=== PATIENT | male | born 1955 | race Caucasian/White ===

== ENCOUNTER 2017-08-30 18:23 | Inpatient (IN) | payer BC ==
[2017-08-30] MEDS ORDERED: Nitroglycerin 50 MG/250 ML BOT 250 ML ONE (19:03)
[2017-08-30] MEDS ORDERED: Morphine 2 mg/2ml in 0.9% NaCl PF SYRINGE ONE ×2 (19:32→21:53)
[2017-08-30] MEDS ORDERED: Morphine 4 MG/ML VIAL SLOW IVP PRN ×2 (19:49→23:00)
[2017-08-30] MEDS ORDERED: Atorvastatin Calcium 40 MG TAB PO SCH (21:00)
[2017-08-30 21:04] LABS: Troponin I 13.521 ng/mL (< 0.028)
--- NOTE | 2017-08-30 22:26 | PDOC.EVN ---
Event Note - Event Note Event Note: [id number] H&P Dictated 1. NSTEMI 2. Angina 3. htn 4. h/p hpl plan: see orders
[2017-08-30] MEDS ORDERED: Nitroglycerin 50 MG/250 ML BOT 250 ML IVPB SCH ×2 (23:30→23:45)
[2017-08-30 23:32] LABS: Troponin I 20.239 ng/mL (< 0.028)
[2017-08-30 23:33] VITALS: BMI 33.1
[2017-08-30] MEDS ORDERED: Dextrose 50% Abboject 50 ML SYRINGE SLOW IVP PRN (23:40)
[2017-08-30] MEDS ORDERED: HumaLOG 300 UNITS/3 ML VIAL SC PRN ×2 (23:40)
[2017-08-30] MEDS ORDERED: Dextrose 5% in Water 1,000 ML IV PRN (23:40)
--- NOTE | 2017-08-31 04:39 | CON ---
DATE OF CONSULTATION: 08/30/2017 HISTORY OF PRESENT ILLNESS: The patient is a 62-year-old gentleman who presented with acute onset of chest and back discomfort. The patient has a previous history of a CVA . He was in his usual state of health when this morning, he developed midsternal chest discomfort. he became diaphoretic and short of breath. Patient did not come to the emergency room until late in the afternoon. The patient at that time continued to have chest discomfort. He was then transferred to [place] for further evaluation. Patient states he continues to have some pain mostly in his left shoulder. PAST MEDICAL HISTORY: 1. Cerebrovascular accident. 2. Diabetes mellitus. 3. Hypertension. PAST SURGICAL HISTORY: Hand surgery. MEDICATIONS: Norvasc 5 daily, losartan 100 daily, Lipitor 40 at bedtime, aspirin 81 daily, metformin and Januvia. SOCIAL HISTORY: Nonsmoker. FAMILY HISTORY: No strong family history of heart disease. PHYSICAL EXAMINATION: GENERAL: This is an obese gentleman in mild distress. VITAL SIGNS: Blood pressure 153/80, heart rate was 50 on IV nitro. NECK: Full. LUNGS: Clear. HEART: Regular rate and rhythm, normal S1, S2, no murmurs. ABDOMEN: Distended. EXTREMITIES: Showed trace edema. SKIN: Warm and dry. NEUROLOGIC: Nonfocal. VASCULAR: Radial pulses are 2+. LABORATORY DATA: Sodium is 139, potassium 3.9, chloride 104, bicarbonate 23, BUN 19, creatinine is 0.83, glucose is 234. CPK-MB was 21.5 with a troponin of 7.7. EKG revealed normal sinus rhythm, nonspecific T-wave abnormality and Q- waves suggestive of possible previous inferior infarction. IMPRESSION: 1. Non-Q-wave myocardial infarction. 2. Diabetes mellitus. 3. Hypertension. 4. History of cerebrovascular accident. This gentleman presents with a non Q-wave myocardial infarction. He has received aspirin and Lovenox. He was started on IV nitroglycerin. The patient will be monitored in the ICU. I have recommended the patient proceed with a cardiac catheterization during this hospitalization. I explained the risks involved with cardiac catheterization including [place], bleeding, stroke, cardiac arrhythmia, and cardiac . The patient understands these risk as well as the risks involved in stent placement. PLAN: 1. Admit to the ICU. 2. IV nitroglycerin 3. IV Morphine. 4. Continue aspirin. 5. Continue Lovenox. 6. Continue Lipitor. 7. Proceed with cardiac catheterization during this hospitalization. CRITICAL CARE TIME: 60 minutes. DEBBI
--- NOTE | 2017-08-31 04:58 | HP ---
DATE OF ADMISSION: 08/30/2017 CHIEF COMPLAINT: Chest pain. HISTORY OF PRESENT ILLNESS: Patient is a 62 years old male with the past medical history of hyperten barrett, hyperlipidemia, diabetes mellitus type 2, coronary artery disease, who woke up this morning, he started having chest pain. Chest pain is substernal, pressure kind of pain radiating towards the le ft side, pain abuts both the sides, pain persisted, so that is why he came to the ER. Pain is interm ittent associated with some dyspnea also and some nausea, denies any smoking, denies any dizziness, d enies any lightheadedness. Complains of generalized body aches also. Patient currently denies any c hest pain at this time, patient is more achy kind, moderate in intensity. PAST MEDICAL HISTORY: As per HPI. PAST SURGICAL HISTORY: Hand surgery, bilateral eye surgery. SOCIAL HISTORY: Denies spontaneous alcohol, denies any drugs. FAMILY HISTORY: Positive for heart problems. MEDICATIONS: Reviewed. REVIEW OF SYSTEMS: Constitutional: Denies any fever, denies any chills. Eyes: Denies any vision p roblems. Ears: Denies any hearing loss. Neck: Denies any neck pain. Cardiovascular system: Posi tive for chest pain. Respiratory system: Denies any cough, denies sputum production. Gastrointesti nal: Denies any nausea. Denies any vomiting. Musculoskeletal: Denies any joint deformities. Inte gument: Denies any rash. All other review of systems are reviewed and are negative. PHYSICAL EXAMINATION RESPIRATORY: CONSTITUTIONAL/VITAL SIGNS: At the time of H and P performed, blood pressure 108/56, heart rate is 9 4, pulse ox 93% on room air. GENERAL: The patient appears tired. HEENT: Anterior nares patent. Nose normal. Ears normal. Teeth intact. Tongue is moist. NECK: Supple, no JVD. CARDIOVASCULAR SYSTEM: S1, S2 present. Regular rate and rhythm. No murmurs, no rubs, no gallops. RESPIRATORY SYSTEM: No wheezing, no rhonchi. Breath sounds bilaterally. GASTROINTESTINAL: Abdomen soft, nontender, no guarding, no organomegaly, no masses felt. MUSCULOSKELETAL: No edema. INTEGUMENTARY: No rashes seen. PSYCHIATRIC: Mood is appropriate at this time. LABORATORY DATA: At the time of H and P performed, sodium 139, potassium 3.9, chloride 104, CO2 23, BUN of 19, creatinine 0.83. Troponin 13.52, CK-MB 21, CK of 471. White count 9.3, hemoglobin 14.5, platelet count 257. EKG: Positive for Q-waves in lead II, III, AVF. ASSESSMENT AND PLAN: The patient is a 62 years old male: 1. Def-LP-wrziyhh elevation myocardial infarction. The patient is already seen by Cardiology and chris bonds is scheduled for catheterization in the morning. The patient received a dose of Lovenox in the outside hospital. We will continue the nitro drip. We will monitor the patient closely. Continue aspirin 325 mg p.o. daily. 2. Angina. Continue nitro drip. Monitor blood pressure closely. 3. History of hypertension. Blood pressure is stable. We will hold pressure medications. 4. Diabetes mellitus type 2. Monitor blood sugars. We will do insulin sliding scale. 5. Hyperlipidemia. Continue statin. The case was discussed in detail with the patient. The patient is a FULL CODE.
[2017-08-31 05:11] LABS: Troponin I 26.911 ng/mL (< 0.028)
[2017-08-31] MEDS ORDERED: Heparin 1000 UNIT/NS 500ML(OR) 1,000 ML ONE (08:25)
[2017-08-31] MEDS ORDERED: FLU VACC QS2017-18 36 mo. & older 0.5 ML SYRINGE IM ONE (09:00)
[2017-08-31] MEDS ORDERED: Aspirin 325 mg Enteric Coated Tablet PO SCH (09:00)
[2017-08-31] MEDS ORDERED: Midazolam HCl 2 mg/2 ml Vial ONE (09:03)
[2017-08-31] MEDS ORDERED: Acetaminophen/Codeine 30-300mg Tablet PO PRN ×2 (09:20)
[2017-08-31] MEDS ORDERED: traMADol HCl 50 MG TAB PO PRN (09:20)
[2017-08-31] MEDS ORDERED: Nitroglycerin 0.4 MG TAB (25 Tab Bottle) SL PRN (09:20)
[2017-08-31] MEDS ORDERED: Sodium Chloride 0.9% 200 ML IV SCH (09:30)
[2017-08-31] MEDS ORDERED: Communication Order-Pharmacy FS SCH (09:51)
[2017-08-31 10:29] LABS: #Eosinphils 0.1 thou/uL (0.0-0.7); #Lymphocytes 2.2 thou/uL (1.20-3.40); #Monocytes 0.7 thou/uL (0.11-0.59); #Neutrophils 7.3 thou/uL (1.40-6.50); %Basophils 0.1 % (0.0-1.0); %Eosinophils 1.2 % (0.0-10.0); %Lymphocytes 21.7 % (21.0-51.0); %Monocytes 6.5 % (0.0-10.0); Hematocrit 40.9 % (42.0-52.0); Mean Platelet Volume 6.8 fL (7.4-10.4); Red Blood Cell (RBC) Count 4.49 mill/uL (4.70-6.10); White Blood Cell (WBC) Count 10.3 thou/uL (4.8-10.8)
[2017-08-31 10:34] LABS: PTT 29.8 SEC (22.9-36.1); Prothrombin Time 12.8 SEC (12.0-14.7)
[2017-08-31 10:40] LABS: Hemoglobin A1c 9.4 % (4.0-6.0)
[2017-08-31] MEDS ORDERED: Heparin 10,000 UNITS/1 ML VIAL 30,000 UNITS in Sodium Chloride 0.9% 1,000 ML FS SCH (11:00)
[2017-08-31] MEDS ORDERED: Lidocaine 1% (PF) 30 ML VIAL ONE (11:53)
[2017-08-31] MEDS ORDERED: CEFAZOLIN/Water 2 GM/20 ML SYRINGE ONE (12:40)
[2017-08-31] MEDS ORDERED: Vecuronium 10 MG VIAL ONE ×2 (12:46→15:53)
[2017-08-31] MEDS ORDERED: Midazolam HCl 5 mg/5 ml Vial ONE (12:46)
[2017-08-31] MEDS ORDERED: Fentanyl 250 MCG/5 ML VIAL ONE (12:46)
--- NOTE | 2017-08-31 13:42 | CON ---
DATE OF CONSULTATION: 08/31/2017 HISTORY OF PRESENT ILLNESS: Mr. Guzman is a 62-year-old gentleman who was admitted yesterday evening with ST elevation myocardial infarction. Peak troponin was 27. He received aspirin and nitroglyceri n, and his pain was relieved. He had intermittent chest pain during the night. He underwent cardiac catheterization today and had intermittent chest pain during the procedure. Currently, he is chest pain free, resting in the intensive care unit. Cardiac catheterization revealed an ejection fraction of approximately 40%. He has diffusely disease d coronary arteries. He has proximal stenosis in the LAD, diagonal, ramus, circumflex, and right cor onary systems. Potential bypassable targets include an LAD, diagonal, ramus posterolateral and poste rior descending artery. PAST MEDICAL HISTORY: 1. Uncontrolled diabetes mellitus. 2. Hypertension. 3. Hyperlipidemia. 4. Coronary artery disease. PAST SURGICAL HISTORY: 1. Hand surgery. 2. Bilateral eye surgeries. SOCIAL HISTORY: He does not use tobacco or alcohol. FAMILY HISTORY: Positive for coronary artery disease in his father. HOME MEDICATIONS: 1. Protonix 20 mg daily. 2. Aspirin 81 mg daily. 3. Januvia 100 mg daily. 4. Metformin 1000 mg b.i.d. 5. Losartan 100 mg daily. 6. Farxiga 10 mg daily. 7. Atorvastatin 40 mg daily. 8. Amlodipine 5 mg daily. REVIEW OF SYSTEMS: Ten point review of systems performed and is negative except as above. PHYSICAL EXAMINATION: GENERAL: This is a well-developed, well-nourished moderately obese gentleman, resting comfortably in bed. VITAL SIGNS: Height 5 feet 6 inches, weight 205 pounds, BSA is 2.08. His temperature is 98.8, pulse is 58 and regular, blood pressure is 121/67. NECK: Supple. There is no carotid bruit. CHEST: Clear bilaterally. HEART: Rhythm is regular without murmur. ABDOMEN: Soft and nontender without mass. EXTREMITIES: No edema. VASCULAR: Palpable carotid, radial, femoral, and dorsalis pedis pulses bilaterally. VENOUS: There are no venous varicosities or venous stasis changes. LABORATORY DATA: Peak troponin was 27. Hemoglobin was 14.5, platelet count 257,000. Potassium is 3 .9, creatinine 0.83. ASSESSMENT AND PLAN: This is a 62-year-old gentleman who has had intermittent medical care. He does not check his blood sugars at home and has not had an A1c checked since 2016, when it was 7.6. He p resented with STEMI, has undergone catheterization and has severe diffuse coronary disease. He has h ad intermittent chest pain overnight. I have discussed urgent coronary artery bypass grafting with quinten huerta and he is agreeable. We will plan for surgery as soon as personnel and room is available.
[2017-08-31] MEDS ORDERED: Insulin Regular 300 UNITS/3 ML VIAL ONE (14:59)
--- NOTE | 2017-08-31 15:18 | PDOC.PN ---
- Subjective Encounter Start Date: 08/31/17 Encounter Start Time: 10:00 Pt seen for followup re: NSTEMI. Denies chest pain, shortness of breath. - Objective Vital Signs & Weight: Vital Signs (12 hours) Temp Pulse Resp Pulse Ox 08/31/17 07:21 98.4 F 56 L 23 H 92 L 08/31/17 04:00 98.3 F Weight Weight 205 lb 7.533 oz Most Recent Monitor Data Heart Rate from ECG 63 NIBP 162/92 NIBP BP-Mean 101 Respiration from ECG 16 SpO2 95 I&O: 08/30/17 08/31/17 09/01/17 06:59 06:59 06:59 Intake Total 28 Output Total 350 375 Balance -322 -375 Result Diagrams: 08/31/17 10:06 Additional Labs: Accuchecks 08/31/17 08/31/17 08/31/17 12:00 04:10 00:49 POC Glucose 160 H 179 H 189 H Phys Exam - Physical Examination Obesity HEENT: PERRLA, moist MMs, sclera anicteric, oral pharynx no lesions Neck: no nodes, no JVD, supple, full ROM Respiratory: no wheezing, no rales, no rhonchi, clear to auscultation bilateral Cardiovascular: RRR, no rub Gastrointestinal: soft, non-tender, no distention, positive bowel sounds Musculoskeletal: pulses present Neurological: moves all 4 limbs Lymphatic: no nodes Psychiatric: normal affect, A&O x 3 Skin: no rash, normal turgor, cap refill <2 seconds Dx/Plan (1) NSTEMI (non-ST elevated myocardial infarction) Code(s): I21.4 - NON-ST ELEVATION (NSTEMI) MYOCARDIAL INFARCTION Status: Acute (2) Multi-vessel coronary artery stenosis Code(s): I25.10 - ATHSCL HEART DISEASE OF [place] CORONARY ARTERY W/O ANG PCTRS Status: Acute (3) DM2 (diabetes mellitus, type 2) Status: Chronic (4) HTN (hypertension) Code(s): I10 - ESSENTIAL (PRIMARY) HYPERTENSION Status: Chronic (5) Dyslipidemia Code(s): E78.5 - HYPERLIPIDEMIA, UNSPECIFIED Status: Chronic - Plan * . Pt awaiting CV surgery input re: multi vessel CAD. Continue accuchecks, insulin sliding scale. Monitor vital signs, titrate antihypertensives as needed. Continue statin Review of Systems - Review of Systems Constitutional: negative: Fever, Chills, Sweats, Weakness, Malaise Respiratory: negative: Cough, Dry, Shortness of Breath, Hemoptysis, SOB with Excertion, Pleuritic Pain, Sputum, Wheezing Cardiovascular: negative: Chest Pain, Palpitations, Orthopnea, Paroxysmal Noc. Dyspnea, Edema, Light Headedness Gastrointestinal: negative: Nausea, Vomiting, Abdominal Pain, Diarrhea, Constipation, Melena, Hematochezia Genitourinary: negative: Dysuria, Frequency, Incontinence, Hematuria, Retention - Medications/Allergies Allergies/Adverse Reactions: Allergies Allergy/AdvReac Type Severity Reaction Status Date / Time No Known Allergies Allergy Verified 08/31/17 07:24 Medications: Current Medications Acetaminophen/Codeine Phosphate (Tylenol #3) 1 tab PO Q4H PRN PRN Reason: Mild Pain (1-3) Acetaminophen/Codeine Phosphate (Tylenol #3) 2 tab PO Q4H PRN PRN Reason: Moderate Pain (4-6) Aspirin (Ecotrin) 325 mg PO DAILY [facility] Last Admin: 08/31/17 12:53 Dose: Not Given Atorvastatin Calcium (Lipitor) 40 mg PO HS [facility] Last Admin: 08/30/17 23:29 Dose: 40 mg Dextrose/Water (Dextrose 50%) 25 gm SLOW IVP PRN PRN PRN Reason: Hypoglycemia Glucagon (Glucagon) 1 mg IM PRN PRN PRN Reason: Hypoglycemia Nitroglycerin/Dextrose (Nitroglycerin 50 Mg/250 Ml Bot) 250 mls @ 0 mls/hr IVPB INF ERUM; Titrate PRN Reason: Protocol Dextrose/Water (D5w) 1,000 mls @ 0 mls/hr IV .Q0M PRN; As Directed PRN Reason: Hypoglycemia Sodium Chloride (Normal Saline 0.9%) 200 mls @ 0 mls/hr IV NOW ERUM PRN Reason: As Directed Stop: 08/31/17 23:59 Last Admin: 08/31/17 12:54 Dose: Not Given Heparin Sodium (Porcine) 30, (000 units/ Sodium Chloride) 1,003 mls @ 0 mls/hr FS WILLCALL ERUM PRN Reason: As Directed Stop: 08/31/17 23:59 Insulin Human Lispro (Humalog) 0 units SC .MODERATE SLIDING SC PRN PRN Reason: Moderate Correctional Scale Insulin Human Lispro (Humalog) 0 units SC .BEDTIME SLIDING SC PRN PRN Reason: Bedtime Correctional Scale Miscellaneous Information (Communication Order-Pharmacy) 1 each FS ONE [facility] Stop: 09/01/17 23:59 Morphine Sulfate (Morphine) 2 mg SLOW IVP Q1H PRN PRN Reason: Chest Pain/PAIN Nitroglycerin (Nitrostat) 0.4 mg SL Q5MIN PRN PRN Reason: Chest Pain Sodium Chloride (Flush - Normal Saline) 10 ml IVF Q12HR [facility] Last Admin: 08/31/17 10:00 Dose: 10 ml Sodium Chloride (Flush - Normal Saline) 10 ml IVF PRN PRN PRN Reason: Saline Flush Sodium Chloride (Flush - Normal Saline) 10 ml IVF PRN PRN PRN Reason: Saline Flush Tramadol HCl (Ultram) 50 mg PO Q6H PRN PRN Reason: Moderate Pain (4-6)
[2017-08-31] MEDS ORDERED: Albumin 5% 0 ML ONE (15:32)
[2017-08-31] MEDS ORDERED: Heparin 30,000 units/30 ml VIAL ONE (15:53)
[2017-08-31] MEDS ORDERED: Propofol 200 MG/20 ML VIAL ONE (15:53)
[2017-08-31] MEDS ORDERED: Protamine Sulfate 250 MG/25 ML VIAL ONE (15:53)
[2017-08-31] MEDS ORDERED: Lidocaine 1% PF 5 ML VIAL ONE (15:53)
[2017-08-31] MEDS ORDERED: PHENYLEPHRINE-NS 100 MCG/ML 10 ML SYRINGE ONE (15:53)
[2017-08-31] MEDS ORDERED: Aminocaproic Acid 5 GM/20 ML VIAL ONE (15:53)
[2017-08-31] MEDS ORDERED: Iopamidol 370 76% 100 ML VIAL ONE (17:10)
[2017-08-31] MEDS ORDERED: Bisacodyl 10 MG SUPP PR PRN (18:08)
[2017-08-31] MEDS ORDERED: Post-Op Insulin Drip Protocol IVPB ONE (18:08)
[2017-08-31] MEDS ORDERED: Fentanyl 100 MCG/2 ML VIAL SLOW IVP PRN (18:08)
[2017-08-31] MEDS ORDERED: DOPamine 400 MG/D5W 250 ML 250 ML IVPB PRN (18:08)
[2017-08-31] MEDS ORDERED: Norepinephrine 8 MG/0.9% NS 250 ML IVPB PRN (18:08)
[2017-08-31] MEDS ORDERED: Hetastarch 6% 500 ML 500 ML IVPB PRN (18:08)
[2017-08-31] MEDS ORDERED: D5 1/2 NS w/20 mEq KCL 1,000 ML IV SCH (18:08)
[2017-08-31] MEDS ORDERED: Magnesium 2 GM/NS 0.9% 100 ML 2 GM in Premix Bag 1 BAG IVPB SCH (18:08)
[2017-08-31] MEDS ORDERED: Acetaminophen 325 MG TAB PO PRN (18:08)
[2017-08-31] MEDS ORDERED: Mag-Al 1200 mg/1200 mg/30 ML UDCUP PO PRN (18:08)
[2017-08-31] MEDS ORDERED: Nitroglycerin 50 MG/250 ML BOT 250 ML IVPB PRN (18:08)
[2017-08-31] MEDS ORDERED: hydrALAZINE 20 MG/ML VIAL SLOW IVP PRN (18:08)
[2017-08-31] MEDS ORDERED: Ondansetron HCl/PF 4 MG/2 ML Vial IVP PRN (18:08)
[2017-08-31] MEDS ORDERED: Promethazine HCl 25 MG/ML VIAL IM PRN (18:08)
[2017-08-31] MEDS ORDERED: Guaifenesin DM 100-10/5 ML UDCUP PO PRN (18:08)
[2017-08-31] MEDS ORDERED: Bisacodyl 5 MG TAB PO PRN (18:08)
[2017-08-31] MEDS ORDERED: Dextrose 50% Abboject 50 ML SYRINGE SLOW IVP PRN (18:21)
[2017-08-31] MEDS ORDERED: Dextrose 5% in Water 1,000 ML IV PRN (18:21)
[2017-08-31] MEDS ORDERED: Morphine 4 MG/ML VIAL ONE (18:22)
[2017-08-31] MEDS: Fentanyl 100 MCG/2 ML VIAL SLOW IVP PRN ×2 (18:36→21:10)
[2017-08-31] MEDS: Ketorolac Tromethamine 30 MG/ML VIAL IVP SCH ×2 (18:45→23:40)
[2017-08-31] MEDS ORDERED: Morphine 4 MG/ML VIAL SLOW IVP PRN (18:45)
[2017-08-31 18:51] LABS: PTT 32.3 SEC (22.9-36.1); Prothrombin Time 15.5 SEC (12.0-14.7)
[2017-08-31] MEDS ORDERED: Magnesium 2 GM/NS 0.9% 50 ML 2 GM in Premix Bag 1 BAG IVPB SCH (19:00)
[2017-08-31 19:01] LABS: Anion Gap 16 mmol/L (10-20); BUN (Urea Nitrogen) 16 mg/dL (8.4-25.7); Calc. Creatinine Clearance 126 mL/min (70-130); Calcium 8.6 mg/dL (7.8-10.44); Carbon Dioxide 24 mmol/L (22-29); Chloride 107 mmol/L (98-107); Estimated GFR-MDRD Greater than 90
--- NOTE | 2017-08-31 19:04 | RAD ---
EXAM: ONE VIEW CHEST 08/31/17 COMPARISON: 08/30/17 HISTORY: Status post open heart surgery. FINDINGS: Sternotomy wires are demonstrated. Right sided central venous catheter is identified. There appears t o be a left sided chest tube and mediastinal drainage catheter. Minimal atelectasis in the left lung base. No significant pleural fluid. No pneumothorax. IMPRESSION: Findings compatible with recent open heart surgery. POS: JOB
[2017-08-31 19:08] LABS: Band 7 % (5-11); Mean Platelet Volume 6.7 fL (7.4-10.4); Neutrophil 73 % (42-75); Red Blood Cell (RBC) Count 3.08 mill/uL (4.70-6.10); White Blood Cell (WBC) Count 21.9 thou/uL (4.8-10.8)
[2017-08-31] MEDS: Potassium Chloride 20 MEQ/100 ML PREMIX BAG IVPB PRN (19:22)
--- NOTE | 2017-08-31 19:24 | PRG ---
DATE OF SERVICE: 08/31/2017 SUBJECTIVE: Mr. Guzman is a very pleasant 62-year-old male. I reviewed him this morning prior to vinayak plasencia. He presented with an hour of chest pain yesterday. It radiated to his left arm and his left a rm is very heavy. He called a friend of his, who has had heart surgery. He said both his arms got numb, so Mr. Thomas huber did not think it was his heart, but since it was not going away, he decided to come in. He sti ll has some achy discomfort. He has undergone cardiac catheterization and felt to need bypass surgery. PAST MEDICAL HISTORY: Remarkable for: 1. Liver disorder. 2. Hypertension. 3. Diabetes. 4. Hand surgery. 5. Eye surgery. SOCIAL HISTORY: He is a nonsmoker, nondrinker. FAMILY HISTORY: Positive for heart disease, negative for lung disease at an early age. REVIEW OF SYSTEMS: Otherwise, negative 10 points. Medications have been reviewed. PHYSICAL EXAMINATION: GENERAL: He is a very pleasant gentleman in no distress. VITAL SIGNS: He is 132/57, heart rate was 62, respiratory rate was in the teens, oximetry is 93. HEENT: His pupils are equal, sclerae are anicteric. NECK: Supple. LUNGS: Clear. HEART: Regular rhythm. S1 and S2 are normal. ABDOMEN: Soft. EXTREMITIES: Without asymmetry. LABORATORY DATA: White count 10.3, hemoglobin 13.9, platelets 249. Sodium 139, potassium 3.9, chlor fuad 104, bicarb 23, BUN 19, creatinine 0.8. Troponin got up to 26. IMPRESSION: 1. Myocardial infarction. 2. Coronary artery disease, scheduled for bypass grafting today. I will be happy to follow with the other physicians caring for him.
[2017-08-31] MEDS ORDERED: Famotidine/PF 20 mg/2ml Vial SLOW IVP SCH (21:00)
[2017-08-31] MEDS: CEFAZOLIN/Water 2 GM/20 ML SYRINGE SLOW IVP SCH (21:11)
--- NOTE | 2017-08-31 22:55 | OP ---
DATE OF OPERATION: 08/31/2017 PREOPERATIVE DIAGNOSES: 1. Coronary artery disease/status post-myocardial infarction. 2. Diabetes mellitus. 3. Hypertension. 4. Hyperlipidemia. 5. Obesity. POSTOPERATIVE DIAGNOSES: 1. Coronary artery disease/status post-myocardial infarction. 2. Diabetes mellitus. 3. Hypertension. 4. Hyperlipidemia. 5. Obesity. PROCEDURE: Coronary artery bypass grafting x5 on an urgent basis: 1. Left internal mammary artery to 1.0 mm diffusely diseased, heavily calcified LAD. 2. Reverse saphenous vein to 1.5 mm diffusely diseased, heavily calcified PDA. 3. Reversed saphenous vein to 2.0 mm posterolateral branch. 4. Reversed saphenous vein to 1.0 mm heavily calcified, diffusely diseased diagonal. 5. Reverse saphenous vein to 1.0 mm heavily calcified, diffusely diseased ramus. SURGEON: Dr. Gerardo Desir and Dr. Sal Chavez. ANESTHESIA: General endotracheal - Dr. Eliseo Kruger. PUMP TIME: 73 minutes. CROSS-CLAMP TIME: 39 minutes. LOW CORE TEMPERATURE: 32-degree Celsius. NETTING WEAVER: Pascual Last. DRAINS: 24-Micronesian chest tubes x2. DRIPS: None. TRANSFUSIONS: Two platelet packs and 4 units FFP for diffuse oozing coming off pump. DESCRIPTION OF PROCEDURE: After consent was obtained, the patient was brought to the operating room and placed in the supine position on the operating room table. Appropriate anesthetic monitor was pl aced and general endotracheal anesthesia induced. Chest, abdomen, and legs were prepped and draped i n usual sterile fashion. Greater saphenous vein was harvested from the left leg using an endoscopic and open skip incision technique. Wounds were irrigated and closed in layers. Median sternotomy was performed. Left internal mammary artery was harvested as a pedicle graft. There was a significant amount of ooze from the periosteum and the mammary bed. The patient was systemically heparinized. D istal pedicle was divided and infused with papaverine. Thymic fat and pericardium were divided with electrocautery. Pericardial stay sutures were placed. Aortic and atrial cannulation was performed. After adequate heparinization, retrograde prime was performed, the patient was placed on cardiopulmo nary bypass. Distal targets were marked. Aortic cross-clamp was applied and 1 liter of antegrade co [place] cardioplegia was given. Topical cold solution was used. Reversed saphenous vein was jo stomosed to the PDA in end-to-side fashion with running 7-0 Prolene suture. Anastomosis was tested a nd was hemostatic. Reversed saphenous vein was anastomosed to the posterolateral branch end-to-side fashion with running 7-0 Prolene suture. Anastomosis was tested and was hemostatic. Reversed saphen ous vein was anastomosed to the ramus in end-to-side fashion with running 7-0 Prolene suture. Anasto mosis was tested and was hemostatic. Reversed saphenous vein was anastomosed to the diagonal in end- to-side fashion with running 7-0 Prolene suture. Anastomosis was tested and was hemostatic. Mammary artery was brought through a window in the pericardium and anastomosed to the distal LAD in end-to-s fuad fashion with running 7-0 Prolene suture. On release of the mammary clamp, there was good hooding in the anastomosis and good distal flow. Pedicle was secured with interrupted 6-0 Prolene suture. Cross-clamp was removed and partial occluding clamp placed. Saphenous vein to the ramus and posterol ateral branch were anastomosed to aortic root punch sites. Partial occluding clamp was removed. The grafts were deaired. Saphenous vein to the diagonal was anastomosed to the side wall of the ramus g raft. Saphenous vein to the PDA was anastomosed to the side wall of the posterolateral graft. Anast omoses were inspected for hemostasis, which was good. The patient was warmed and weaned from cardiop ulmonary bypass. After resumption of sinus rhythm, good hemodynamics, and temperature greater than 3 6.5, bypass was discontinued. Transfusions were given. A 24 Micronesian chest tubes were placed in the [facility] x2. Decannulation was performed and pursestring sutures secured. Protamine was administe red. Vancomycin paste was placed on the sternal edges. Platelets and FFP were transfused. After ad equate hemostasis had been obtained, the sternum was closed with #7 wire. Sternum was treated with p latelet-rich plasma and wires twisted. Wounds were irrigated, treated with platelet-poor plasma, and closed in multiple layers. The patient tolerated the procedure well and was transferred to the inte nsive care unit in stable, but critical condition. Needle, sponge, and instrument counts were all re ported as correct at the end of the procedure.
[2017-08-31 23:52] LABS: Hematocrit 28.3 % (42.0-52.0)
[2017-09-01] MEDS: Potassium Chloride 20 MEQ/100 ML PREMIX BAG IVPB PRN (02:15)
[2017-09-01] MEDS: HYDROcodone/Acetaminophen 5/325 mg Tablet PO PRN ×4 (02:23→21:21)
[2017-09-01 04:53] LABS: #Lymphocytes 1.1 thou/uL (1.20-3.40); #Monocytes 0.9 thou/uL (0.11-0.59); #Neutrophils 8.5 thou/uL (1.40-6.50); %Basophils 0.1 % (0.0-1.0); %Eosinophils 0.1 % (0.0-10.0); %Lymphocytes 10.1 % (21.0-51.0); %Monocytes 8.6 % (0.0-10.0); Hematocrit 29.4 % (42.0-52.0); Mean Platelet Volume 6.7 fL (7.4-10.4); Red Blood Cell (RBC) Count 3.22 mill/uL (4.70-6.10); White Blood Cell (WBC) Count 10.5 thou/uL (4.8-10.8)
[2017-09-01 05:11] LABS: Anion Gap 13 mmol/L (10-20); BUN (Urea Nitrogen) 16 mg/dL (8.4-25.7); Calc. Creatinine Clearance 134 mL/min (70-130); Calcium 8.3 mg/dL (7.8-10.44); Carbon Dioxide 25 mmol/L (22-29); Chloride 107 mmol/L (98-107); Estimated GFR-MDRD Greater than 90
[2017-09-01] MEDS: Ketorolac Tromethamine 30 MG/ML VIAL IVP SCH ×4 (05:47→17:52)
[2017-09-01] MEDS: CEFAZOLIN/Water 2 GM/20 ML SYRINGE SLOW IVP SCH ×2 (05:48→14:45)
[2017-09-01] MEDS: Carvedilol 6.25 MG TAB PO SCH ×2 (08:27→16:35)
[2017-09-01] MEDS: metFORMIN 500 MG TAB PO SCH ×2 (08:28→16:35)
[2017-09-01] MEDS: Amlodipine 5 MG TAB PO SCH (08:28)
[2017-09-01] MEDS: Aspirin 325 MG TAB PO SCH (08:28)
[2017-09-01] MEDS: Fish Oil 1,000 MG CAP PO SCH (08:28)
[2017-09-01] MEDS: Alogliptin Benzoate 25 MG TABLET PO SCH (08:28)
[2017-09-01] MEDS: Famotidine 20 MG TAB PO SCH ×2 (08:29→20:07)
[2017-09-01] MEDS ORDERED: Non-Formulary Item 1 EACH (Dapagliflozin Propanediol [Farxiga] 10 MG) PO SCH (09:00)
[2017-09-01] MEDS ORDERED: Magnesium 2 GM/NS 0.9% 100 ML 2 GM in Premix Bag 1 BAG IVPB SCH (09:00)
[2017-09-01] MEDS ORDERED: Losartan Potassium 25 MG TAB PO SCH ×2 (09:00→11:30)
--- NOTE | 2017-09-01 09:56 | RAD ---
AP CHEST: History: Status post open heart surgery. Date: 09-01-17 Comparison: 08-31-17 FINDINGS: AP chest demonstrates sternotomy wires seen. A right subclavian central line is seen. Mild pulmonary vascular congestion is seen. No evidence of effusions, pneumonia, or pneumothorax is seen. IMPRESSION: Pulmonary vascular congestion, otherwise unremarkable AP chest. Mediastinal drain, right subclavian c entral line, and sternotomy wires are stable and unchanged. POS: [facility]
--- NOTE | 2017-09-01 14:42 | PDOC.PN ---
- Subjective Encounter Start Date: 09/01/17 Encounter Start Time: 07:00 Pt seen for followup re: NSTEMI. Reports soreness at surgical site. No cough , fevers or chills. - Objective MAR Reviewed: Yes Vital Signs & Weight: Vital Signs (12 hours) Temp Pulse Resp BP Pulse Ox 09/01/17 14:14 81 18 100 09/01/17 12:00 99.7 F H 09/01/17 08:28 81 131/78 09/01/17 08:27 131/78 09/01/17 08:00 98.9 F 81 20 100 09/01/17 07:10 75 20 97 09/01/17 03:00 98.6 F Weight Weight 208 lb 5.389 oz Most Recent Monitor Data Heart Rate from ECG 82 NIBP 126/81 NIBP BP-Mean 90 Respiration from ECG 22 SpO2 98 I&O: 08/31/17 09/01/17 09/02/17 06:59 06:59 06:59 Intake Total 28 1795 1860 Output Total 350 1525 578 Balance -162 173 3508 Result Diagrams: 09/01/17 04:30 09/01/17 04:30 Additional Labs: Accuchecks 09/01/17 09/01/17 09/01/17 11:12 06:53 04:37 POC Glucose 155 H 127 H 140 H 09/01/17 09/01/17 08/31/17 02:29 01:09 23:46 POC Glucose 108 156 H 156 H 08/31/17 08/31/17 22:05 20:39 POC Glucose 179 H 204 H EKG Reviewed by me: Yes (Tele: NSR) Phys Exam - Physical Examination Constitutional: NAD HEENT: moist MMs Neck: supple Respiratory: clear to auscultation bilateral Cardiovascular: RRR Gastrointestinal: soft, non-tender Musculoskeletal: pulses present Neurological: moves all 4 limbs Psychiatric: normal affect Deviation from normal: surgical sites clean Dx/Plan (1) NSTEMI (non-ST elevated myocardial infarction) Code(s): I21.4 - NON-ST ELEVATION (NSTEMI) MYOCARDIAL INFARCTION Status: Acute (2) S/P CABG x 5 Code(s): Z95.1 - PRESENCE OF AORTOCORONARY BYPASS GRAFT Status: Acute (3) Multi-vessel coronary artery stenosis Code(s): I25.10 - ATHSCL HEART DISEASE OF [place] CORONARY ARTERY W/O ANG PCTRS Status: Acute (4) DM2 (diabetes mellitus, type 2) Status: Chronic (5) HTN (hypertension) Code(s): I10 - ESSENTIAL (PRIMARY) HYPERTENSION Status: Chronic (6) Dyslipidemia Code(s): E78.5 - HYPERLIPIDEMIA, UNSPECIFIED Status: Chronic - Plan plan discussed w/ family, PT/OT, out of bed/ambulate, DVT proph w/SCDs * . s/p CABG x 5. Ambulate patient. Continue accuchecks, insulin. Monitor vital signs and titrate antihypertensives. Review of Systems - Review of Systems Constitutional: negative: Fever, Chills, Sweats, Weakness, Malaise, Other Respiratory: negative: Cough, Dry, Shortness of Breath, Hemoptysis, SOB with Excertion, Pleuritic Pain, Sputum, Wheezing Cardiovascular: negative: Chest Pain, Palpitations, Orthopnea, Paroxysmal Noc. Dyspnea, Edema, Light Headedness - Medications/Allergies Allergies/Adverse Reactions: Allergies Allergy/AdvReac Type Severity Reaction Status Date / Time No Known Allergies Allergy Verified 08/31/17 07:24 Medications: Current Medications Acetaminophen (Tylenol) 650 mg PO Q6H PRN PRN Reason: Headache/Fever Or Mild Pain Hydrocodone Bitart/Acetaminophen ([place] 5/325) 1 tab PO Q4H PRN PRN Reason: Moderate Pain (4-6) Last Admin: 09/01/17 11:08 Dose: 1 tab Hydrocodone Bitart/Acetaminophen ([place] 5/325) 2 tab PO Q4H PRN PRN Reason: Severe Pain (7-10) Last Admin: 09/01/17 02:23 Dose: 2 tab Al Hydroxide/Mg Hydroxide (Maalox) 30 ml PO Q4H PRN PRN Reason: Indigestion Albumin Human (Albumin 5%) 12.5 gm IVPB Q6H PRN PRN Reason: To Maintain SBP> 90 mmHG Stop: 09/01/17 18:09 Albumin Human (Albumin 5%) 25 gm IVPB Q6H PRN PRN Reason: To Maintain SBP > 90 mmHG Stop: 09/01/17 18:09 Albuterol/Ipratropium (Duoneb) 3 ml NEB [id number] Last Admin: 09/01/17 14:14 Dose: 3 ml Albuterol/Ipratropium (Duoneb) 3 ml NEB [id number] PRN PRN Reason: SHORTNESS OF BREATH Alogliptin Benzoate (Alogliptin) 25 mg PO DAILY [facility] Last Admin: 09/01/17 08:28 Dose: 25 mg Amlodipine Besylate (Norvasc) 5 mg PO DAILY [facility] Last Admin: 09/01/17 08:28 Dose: 5 mg Aspirin (Aspirin) 325 mg PO DAILY [facility] Last Admin: 09/01/17 08:28 Dose: 325 mg Bisacodyl (Dulcolax) 10 mg PO Q12H PRN PRN Reason: Constipation Bisacodyl (Dulcolax) 10 mg [place] Q12H PRN PRN Reason: Constipation Carvedilol (Coreg) 6.25 mg PO BID-[facility] Last Admin: 09/01/17 08:27 Dose: 6.25 mg Dextrose/Water (Dextrose 50%) 25 gm SLOW IVP PRN PRN PRN Reason: PER HYPOGLYCEMIC PROTOCOL Famotidine (Pepcid) 20 mg PO BID [facility] Last Admin: 09/01/17 08:29 Dose: 20 mg Fentanyl (Sublimaze) 25 mcg SLOW IVP Q2H PRN PRN Reason: Moderate Pain (4-6) Stop: 09/02/17 17:58 Fentanyl (Sublimaze) 50 mcg SLOW IVP Q2H PRN PRN Reason: Severe Pain (7-10) Stop: 09/02/17 17:58 Last Admin: 08/31/17 21:10 Dose: 50 mcg Fish Oil (Fish Oil) 1,000 mg PO DAILY [facility] Last Admin: 09/01/17 08:28 Dose: 1,000 mg Glucagon (Glucagon) 1 mg SC PRN PRN PRN Reason: PER HYPOGLYCEMIC PROTOCOL Guaifenesin/Dextromethorphan (Robitussin Dm) 15 ml PO Q4H PRN PRN Reason: Cough Hydralazine HCl (Apresoline) 10 mg SLOW IVP Q6H PRN PRN Reason: To Maintain SBP< 140mmHG Hetastarch/Sodium Chloride (Hespan) 500 mls @ 0 mls/hr IVPB PRN PRN; As Directed PRN Reason: To Maintain SBP > 90mmHg Stop: 09/01/17 17:58 Magnesium Sulfate 2 gm/ Device 100 mls @ 100 mls/hr IVPB QAM ERUM Stop: 09/02/17 09:59 Last Admin: 09/01/17 09:58 Dose: 100 mls Nitroglycerin/Dextrose (Nitroglycerin 50 Mg/250 Ml Bot) 250 mls @ 0 mls/hr IVPB PRN PRN; Protocol; Titrate PRN Reason: To Maintain SBP< 140mmHG Dextrose/Water (D5w) 1,000 mls @ 0 mls/hr IV INF PRN; As Directed PRN Reason: PRN HYPOGLYCEMIC PROTOCOL Insulin Detemir (Levemir) 0 units SC ONE PRN PRN Reason: POST-OPEN HEART PROTOCOL Stop: 09/01/17 18:22 Insulin Human Regular (Humulin R) 0 units SC Q4H PRN; Protocol PRN Reason: POST CABG SLIDING SCALE Ketorolac Tromethamine (Toradol) 30 mg IVP Q6HR ERUM Stop: 09/03/17 18:00 Last Admin: 09/01/17 12:55 Dose: 30 mg Losartan Potassium (Cozaar) 25 mg PO DAILY [facility] Metformin HCl (Glucophage) 1,000 mg PO BID-[facility] Last Admin: 09/01/17 08:28 Dose: 1,000 mg Morphine Sulfate (Morphine) 2 mg SLOW IVP Q15M PRN PRN Reason: Pain Non-Formulary Medication (Dapagliflozin Propanediol [Farxiga]) 10 mg PO DAILY [facility] Non-Formulary Medication (Red Yeast Rice [Red Yeast Rice]) 1,200 mg PO BID [facility] Ondansetron HCl (Zofran) 4 mg IVP Q6H PRN PRN Reason: Nausea/Vomiting Last Admin: 08/31/17 18:41 Dose: 4 mg Potassium Chloride (Kcl) 20 meq IVPB PRN PRN PRN Reason: K level </= 4.0 Last Admin: 09/01/17 02:15 Dose: 20 meq Promethazine HCl (Phenergan) 6.25 mg IM Q4H PRN PRN Reason: Nausea/Vomiting Rosuvastatin Calcium (Crestor) 40 mg PO HS [facility] Sodium Chloride (Flush - Normal Saline) 10 ml IVF PRN PRN PRN Reason: Saline Flush
--- NOTE | 2017-09-01 15:50 | EKG ---
Test Reason : STAT Blood Pressure : / mmHG Vent. Rate : 108 BPM Atrial Rate : 108 BPM P-R Int : 214 ms QRS Dur : 100 ms QT Int : 336 ms P-R-T Axes : 056 -30 097 degrees QTc Int : 450 ms Sinus tachycardia with 1st degree A-V block Left axis deviation Marked ST abnormality, possible lateral subendocardial injury vs. ischemia. Abnormal ECG When compared with ECG of 30-AUG-2017 18:46, (Unconfirmed) Vent. rate has increased BY 54 BPM Incomplete right bundle branch block is no longer Present Confirmed by TIFFANY CROCKETT ([id number]) on 09/01/2017 3:49:51 PM Referred By: JENELLE Confirmed By:TIFFANY CROCKETT
--- NOTE | 2017-09-01 15:55 | EKG ---
Test Reason : Blood Pressure : / mmHG Vent. Rate : 077 BPM Atrial Rate : 077 BPM P-R Int : 198 ms QRS Dur : 090 ms QT Int : 372 ms P-R-T Axes : 014 -37 033 degrees QTc Int : 420 ms Normal sinus rhythm Left axis deviation Minimal voltage criteria for LVH, may be normal variant Inferior infarct , age undetermined Abnormal ECG When compared with ECG of 31-AUG-2017 18:28, (Unconfirmed) Inferior infarct is now Present ST no longer depressed in Anterolateral leads Confirmed by TIFFANY CROCKETT ([id number]) on 09/01/2017 3:54:48 PM Referred By: AMBER Confirmed By:TIFFANY CROCKETT
--- NOTE | 2017-09-01 17:49 | PRG ---
DATE OF SERVICE: 09/01/2017 SUBJECTIVE: Mj Guzman was extubated quickly after surgery yesterday. He has done well since that time. He had a brief period of dyspnea, but this has resolved quickly after he awakened from th e surgery. OBJECTIVE: VITAL SIGNS: His heart rate is 80, respiratory rate is in the teens, oximetry is 100%, blood pressur e 133/87. Intake and output is positive 270. Chest tube drainage is 450 mL since surgery. LUNGS: Clear. CARDIOVASCULAR: Regular rhythm. ABDOMEN: Soft. LABORATORY DATA: White count 10.5, hemoglobin 10.0, platelets 248. Sodium 140, potassium 4.5, chlor fuad 107, bicarbonate 25, BUN 16, creatinine 0.7, glucose 139. IMPRESSION AND PLAN: Status post coronary artery bypass grafting, 5-vessel, after myocardial infarct ion after one hour of chest discomfort at home. He appears to be doing well. He still has his chest tubes in place. We will move out of the critical care unit until he is stable after removal of his tubes. This will be CT surgery's discretion. We will follow him as long as he is in the critical ca re unit.
[2017-09-01] MEDS: Insulin Regular 300 UNITS/3 ML VIAL SC PRN ×2 (17:50→21:08)
[2017-09-01] MEDS ORDERED: Atorvastatin Calcium 40 MG TAB PO SCH (21:00)
[2017-09-02] MEDS: Ketorolac Tromethamine 30 MG/ML VIAL IVP SCH ×4 (00:28→17:39)
[2017-09-02 04:18] LABS: #Basophils 0.1 thou/uL (0.0-0.2); #Eosinphils 0.1 thou/uL (0.0-0.7); #Lymphocytes 2.3 thou/uL (1.20-3.40); #Monocytes 0.9 thou/uL (0.11-0.59); #Neutrophils 7.7 thou/uL (1.40-6.50); %Basophils 0.5 % (0.0-1.0); %Eosinophils 1.3 % (0.0-10.0); %Lymphocytes 20.5 % (21.0-51.0); Hematocrit 28.8 % (42.0-52.0); Mean Platelet Volume 6.9 fL (7.4-10.4); Red Blood Cell (RBC) Count 3.11 mill/uL (4.70-6.10)
[2017-09-02] MEDS: HYDROcodone/Acetaminophen 5/325 mg Tablet PO PRN (04:36)
[2017-09-02 04:52] LABS: Anion Gap 8 mmol/L (10-20); BUN (Urea Nitrogen) 20 mg/dL (8.4-25.7); Calc. Creatinine Clearance 142 mL/min (70-130); Calcium 8.2 mg/dL (7.8-10.44); Carbon Dioxide 30 mmol/L (22-29); Chloride 103 mmol/L (98-107); Estimated GFR-MDRD Greater than 90
[2017-09-02] MEDS: Potassium Chloride 20 MEQ/100 ML PREMIX BAG IVPB PRN (06:27)
[2017-09-02] MEDS: Insulin Regular 300 UNITS/3 ML VIAL SC PRN ×2 (06:32→17:42)
[2017-09-02] MEDS ORDERED: Milk Of Magnesia 30 ML UDCUP PO PRN (06:55)
[2017-09-02] MEDS ORDERED: Zolpidem Tartrate 5 MG TAB PO PRN (06:55)
[2017-09-02] MEDS ORDERED: Artificial Tears 18 DROP/0.9 ML EA EYE PRN (06:55)
[2017-09-02] MEDS ORDERED: Bisacodyl 10 MG SUPP PR PRN (06:55)
[2017-09-02] MEDS ORDERED: Fentanyl 100 MCG/2 ML VIAL SLOW IVP PRN ×2 (06:55)
[2017-09-02] MEDS ORDERED: Nitroglycerin 0.4 MG TAB 1 EACH SL PRN (06:55)
[2017-09-02] MEDS ORDERED: diphenhydrAMINE 25 MG CAP PO PRN (06:55)
[2017-09-02] MEDS ORDERED: HYDROcodone/Acetaminophen 5/325 mg Tablet PO PRN ×2 (06:55)
[2017-09-02] MEDS ORDERED: Mineral Oil ENEMA PR PRN (06:55)
[2017-09-02] MEDS ORDERED: Mag-Al 1200 mg/1200 mg/30 ML UDCUP PO PRN (06:55)
[2017-09-02] MEDS ORDERED: Guaifenesin DM 100-10/5 ML UDCUP PO PRN (06:55)
[2017-09-02] MEDS ORDERED: Ondansetron HCl/PF 4 MG/2 ML Vial IVP PRN (06:55)
[2017-09-02] MEDS ORDERED: Bisacodyl 5 MG TAB PO PRN (06:55)
[2017-09-02] MEDS ORDERED: Acetaminophen 325 MG TAB PO PRN (06:55)
[2017-09-02] MEDS ORDERED: Dextrose 50% Abboject 50 ML SYRINGE SLOW IVP PRN (08:08)
[2017-09-02] MEDS ORDERED: Dextrose 5% in Water 1,000 ML IV PRN (08:08)
--- NOTE | 2017-09-02 08:20 | RAD ---
URIGHT PORTABLE CHEST 1 VIEW: HISTORY: A 62-year-old male recent post open heart surgery. COMPARISON: 08/31/17. FINDINGS: Right subclavian catheter in place. Recent postop midline sternotomy. Minimal pleural and parenchym al opacity changes I the left base showing some worsening from the prior study, probably small left p leural effusion and some left lower lobe subsegmental atelectasis. No pneumothorax. IMPRESSION: Postoperative changes in the right perihilar region and left base with some pleural and parenchymal o pacity changes in the left base showing some worsening from the prior study. No pneumothorax. Dio nue short-term followup. POS: [facility]
[2017-09-02] MEDS: Carvedilol 6.25 MG TAB PO SCH ×2 (08:30→17:39)
[2017-09-02] MEDS: Furosemide 40 MG TAB PO SCH (08:31)
[2017-09-02] MEDS: Fish Oil 1,000 MG CAP PO SCH (08:31)
[2017-09-02] MEDS: Aspirin 325 MG TAB PO SCH (08:31)
[2017-09-02] MEDS: Potassium Chloride 10 MEQ TAB PO SCH (08:33)
[2017-09-02] MEDS: metFORMIN 500 MG TAB PO SCH ×2 (08:33→17:39)
[2017-09-02] MEDS: Alogliptin Benzoate 25 MG TABLET PO SCH (08:33)
[2017-09-02] MEDS: Famotidine 20 MG TAB PO SCH ×2 (08:34→20:24)
[2017-09-02] MEDS: Amlodipine 5 MG TAB PO SCH (08:34)
[2017-09-02] MEDS ORDERED: Losartan Potassium 25 MG TAB PO SCH (09:00)
[2017-09-02] MEDS ORDERED: Aspirin 325 mg Enteric Coated Tablet PO SCH (09:00)
[2017-09-02] MEDS ORDERED: Magnesium 2 GM/NS 0.9% 100 ML 2 GM in Premix Bag 1 BAG IVPB SCH (09:15)
[2017-09-02] MEDS: RED YEAST RICE 1200 MG PO SCH ×2 (11:39→11:40)
[2017-09-02] MEDS ORDERED: Clopidogrel Bisulfate 75 MG TAB PO SCH (12:00)
--- NOTE | 2017-09-02 13:08 | PDOC.PN ---
- Subjective Encounter Start Date: 09/02/17 Encounter Start Time: 09:40 Pt seen for followup re: NSTEMI. Feels better. No chest pain, shortness of breath, fevers or chills. - Objective MAR Reviewed: Yes Vital Signs & Weight: Vital Signs (12 hours) Temp Pulse Pulse Pulse Resp BP BP 09/02/17 12:00 98.1 F 82 18 09/02/17 11:54 85 80 124/67 09/02/17 08:35 84 85 138/83 09/02/17 08:34 83 140/72 09/02/17 08:30 140/72 09/02/17 08:00 98 F 80 19 09/02/17 07:27 98 F 79 18 09/02/17 07:00 98 F 09/02/17 04:00 99.2 F BP BP Pulse Ox Pulse Ox Pulse Ox 09/02/17 12:00 111/67 09/02/17 11:54 111/67 90 L 09/02/17 08:35 140/72 100 97 09/02/17 08:34 09/02/17 08:30 09/02/17 08:00 98 09/02/17 07:27 96 09/02/17 07:00 09/02/17 04:00 Weight Weight 202 lb 6.15 oz Most Recent Monitor Data Heart Rate from ECG 85 NIBP 138/83 NIBP BP-Mean 104 Respiration from ECG 15 SpO2 96 I&O: 09/01/17 09/02/17 09/03/17 06:59 06:59 06:59 Intake Total 1795 2400 480 Output Total 1525 1373 0 Balance 270 1027 480 Result Diagrams: 09/02/17 04:00 09/02/17 04:00 Additional Labs: Accuchecks 09/02/17 09/01/17 09/01/17 06:33 21:08 18:39 POC Glucose 158 H 166 H 195 H 09/01/17 16:18 POC Glucose 192 H EKG Reviewed by me: Yes (Tele: NSR) Phys Exam - Physical Examination Constitutional: NAD HEENT: moist MMs Neck: supple Respiratory: clear to auscultation bilateral Cardiovascular: RRR Gastrointestinal: soft Neurological: moves all 4 limbs Psychiatric: normal affect Dx/Plan (1) NSTEMI (non-ST elevated myocardial infarction) Code(s): I21.4 - NON-ST ELEVATION (NSTEMI) MYOCARDIAL INFARCTION Status: Acute (2) S/P CABG x 5 Code(s): Z95.1 - PRESENCE OF AORTOCORONARY BYPASS GRAFT Status: Acute (3) Multi-vessel coronary artery stenosis Code(s): I25.10 - ATHSCL HEART DISEASE OF [place] CORONARY ARTERY W/O ANG PCTRS Status: Acute (4) DM2 (diabetes mellitus, type 2) Status: Chronic (5) HTN (hypertension) Code(s): I10 - ESSENTIAL (PRIMARY) HYPERTENSION Status: Chronic (6) Dyslipidemia Code(s): E78.5 - HYPERLIPIDEMIA, UNSPECIFIED Status: Chronic - Plan PT/OT, out of bed/ambulate, DVT proph w/SCDs * . Continue aspirin, Plavix, statin, beta thomas and ARB. Ambulate pt. Continue accuchecks, insulin sliding scale. Review of Systems - Review of Systems Cardiovascular: negative: Chest Pain, Palpitations, Orthopnea, Paroxysmal Noc. Dyspnea, Edema, Light Headedness Gastrointestinal: negative: Nausea, Vomiting, Abdominal Pain, Diarrhea, Constipation, Melena, Hematochezia - Medications/Allergies Allergies/Adverse Reactions: Allergies Allergy/AdvReac Type Severity Reaction Status Date / Time No Known Allergies Allergy Verified 08/31/17 07:24 Medications: Current Medications Acetaminophen (Tylenol) 650 mg PO Q6H PRN PRN Reason: Headache/Fever or Pain Hydrocodone Bitart/Acetaminophen ([place] 5/325) 1 tab PO Q4H PRN PRN Reason: Moderate Pain (4-6) Hydrocodone Bitart/Acetaminophen ([place] 5/325) 2 tab PO Q4H PRN PRN Reason: Severe Pain (7-10) Al Hydroxide/Mg Hydroxide (Maalox) 30 ml PO Q4H PRN PRN Reason: Indigestion Albuterol/Ipratropium (Duoneb) 3 ml NEB [id number] PRN PRN Reason: Respiratory Distress Albuterol/Ipratropium (Duoneb) 3 ml NEB [id number] [facility] Last Admin: 09/02/17 12:44 Dose: Not Given Alogliptin Benzoate (Alogliptin) 25 mg PO DAILY [facility] Last Admin: 09/02/17 08:33 Dose: 25 mg Amlodipine Besylate (Norvasc) 5 mg PO DAILY [facility] Last Admin: 09/02/17 08:34 Dose: 5 mg Artificial Tears (Tears Naturale) 0 drop EA EYE PRN PRN PRN Reason: Dry Eyes Aspirin (Aspirin) 325 mg PO DAILY [facility] Last Admin: 09/02/17 08:31 Dose: Not Given Aspirin (Ecotrin) 81 mg PO DAILY [facility] Bisacodyl (Dulcolax) 10 mg PO Q12H PRN PRN Reason: Constipation Bisacodyl (Dulcolax) 10 mg [place] Q12H PRN PRN Reason: Constipation Carvedilol (Coreg) 12.5 mg PO BID[facility] Clopidogrel Bisulfate (Plavix) 75 mg PO 1200 [facility] Last Admin: 09/02/17 11:37 Dose: 75 mg Dextrose/Water (Dextrose 50%) 25 gm SLOW IVP PRN PRN PRN Reason: PER HYPOGLYCEMIC PROTOCOL Diphenhydramine HCl (Benadryl) 25 mg PO Q6H PRN PRN Reason: Itching & Insomnia or Tusahr Baldev Famotidine (Pepcid) 20 mg PO BID [facility] Last Admin: 09/02/17 08:34 Dose: 20 mg Fentanyl (Sublimaze) 25 mcg SLOW IVP Q2H PRN PRN Reason: Moderate breakthrough pain Fentanyl (Sublimaze) 50 mcg SLOW IVP Q2H PRN PRN Reason: Severe breakthrough pain Fish Oil (Fish Oil) 1,000 mg PO DAILY [facility] Last Admin: 09/02/17 08:31 Dose: 1,000 mg Furosemide (Lasix) 40 mg PO DAILY-[facility] Last Admin: 09/02/17 08:31 Dose: 40 mg Glucagon (Glucagon) 1 mg SC PRN PRN PRN Reason: PER HYPOGLYCEMIC PROTOCOL Guaifenesin/Dextromethorphan (Robitussin Dm) 15 ml PO Q4H PRN PRN Reason: Cough Dextrose/Water (D5w) 1,000 mls @ 0 mls/hr IV INF PRN; As Directed PRN Reason: PRN HYPOGLYCEMIC PROTOCOL Insulin Human Regular (Humulin R) 0 units SC Q4H PRN; Protocol PRN Reason: POST CABG SLIDING SCALE Last Admin: 09/02/17 06:32 Dose: 3 unit Ketorolac Tromethamine (Toradol) 30 mg IVP Q6HR [facility] Stop: 09/03/17 18:00 Last Admin: 09/02/17 11:37 Dose: 30 mg Losartan Potassium (Cozaar) 50 mg PO DAILY [facility] Magnesium Hydroxide (Milk Of Magnesium) 30 ml PO Q12H PRN PRN Reason: Constipation Metformin HCl (Glucophage) 1,000 mg PO BID-[facility] Last Admin: 09/02/17 08:33 Dose: 1,000 mg Mineral Oil (Fleet Mineral Oil) 133 ml [place] DAILYPRN PRN PRN Reason: Constipation Nitroglycerin (Nitrostat) 0.4 mg SL Q5MIN PRN PRN Reason: Chest Pain Non-Formulary Medication (Dapagliflozin Propanediol [Farxiga]) 10 mg PO DAILY [facility] Ondansetron HCl (Zofran) 4 mg IVP Q6H PRN PRN Reason: Nausea/Vomiting Potassium Chloride (Klor-Con 10) 10 meq PO QAM[facility] Last Admin: 09/02/17 08:33 Dose: 10 meq Rosuvastatin Calcium (Crestor) 40 mg PO HS [facility] Last Admin: 09/01/17 20:06 Dose: 40 mg Sodium Chloride (Flush - Normal Saline) 10 ml IVF PRN PRN PRN Reason: Saline Flush Zolpidem Tartrate (Ambien) 5 mg PO HSPRN PRN PRN Reason: Insomnia
--- NOTE | 2017-09-02 16:26 | PRG ---
DATE OF SERVICE: 09/02/2017 SERVICE: Pulmonary Medicine. INTERVAL HISTORY: The patient is doing outstanding from a respiratory standpoint. He denies any cur rent fevers, chills, nausea, vomiting or chest discomfort. He got downgraded from the ICU to telemet ry today. He has no complaints of shortness of breath. He has appropriate chest discomfort. Chest tubes were removed. PHYSICAL EXAMINATION: VITAL SIGNS: Afebrile, pulse 82, blood pressure 111/67, respirations 18, saturation 95% on room air. GENERAL: Patient is awake, alert, no apparent distress. LUNGS: Decent air entry. Rhonchi are present with minimal crackles. They clears with cough. HEART: Normal rate, regular. ABDOMEN: Soft, nontender, nondistended, bowel sounds positive. MUSCULOSKELETAL: No cyanosis or clubbing. No pitting in the bilateral lower extremities. NEUROLOGIC: Grossly nonfocal. LABORATORY DATA: WBC 11.0, hemoglobin 9.8, platelets 221,000. INR 1.2, bicarbonate 30, anion gap 8. The bicarbonate is up trending. Blood sugars are in the mid 150s. IMAGING: Chest x-ray demonstrates postop changes. There is a left-sided pleural parenchymal abnorma lity. Small right-sided pleural effusion is evident. Post-sternotomy changes are there. Other than the left lower lobe, I do not see any discrete abnormality. ASSESSMENT: 1. Coronary artery disease, status post coronary artery bypass graft x5 vessels, postoperative day # 2. 2. Pleural effusion on the left, likely evolving. 3. Non-ST elevation myocardial infarction. 4. Type 2 diabetes mellitus. PLAN: At this point, the patient has no further inpatient requirements for pulmonary critical care o marky. As such, pulmonary will sign off.
[2017-09-03] MEDS: Ketorolac Tromethamine 30 MG/ML VIAL IVP SCH ×2 (00:11→05:08)
--- NOTE | 2017-09-03 08:00 | DIS ---
DATE OF ADMISSION: 08/30/2017 DATE OF DISCHARGE: 09/03/2017 HISTORY OF PRESENT ILLNESS: Mr. Guzman was admitted to the hospital late in the evening on 08/30/[address] elevation myocardial infarction. He was brought to the metallurgy laboratory technician and found to have severe 3- vessel disease. I was consulted on the morning of 08/31/2017 after catheterization. He was at that time urgently taken to the operating room and underwent coronary bypass grafting x5 with left interna l mammary artery to LAD, saphenous vein grafts to PDA, posterolateral branch, diagonal, and ramus. P ostoperatively, he has done well. He has had no rhythm disturbances. At the time of discharge, he i s ambulatory, tolerating a regular diet, having good bowel and bladder function. Incisions are clean and dry without evidence of infection. DISCHARGE MEDICATIONS: 1. Aspirin 81 mg q. day. 2. Plavix 75 mg q. day. 3. Norvasc 5 mg q. day. 4. Coreg 12.5 mg b.i.d. 5. Cozaar 50 mg q. day. 6. Red yeast 1200 mg b.i.d. 7. Lipitor 40 mg q. day. 8. His home diabetes medications both with metformin, Januvia, and . 9. [place] 5/325 1-2 q. 6 hours. Follow up is with me in 2 weeks, Dr. Sharma in a month.
[2017-09-03 08:34] VITALS: TEMP 98.2
[2017-09-03] MEDS ORDERED: Aspirin 81 mg Enteric Coated Tablet PO SCH (09:00)
[2017-09-03] MEDS ORDERED: Losartan Potassium 25 MG TAB PO SCH (09:00)
[2017-09-03] MEDS: Aspirin 325 MG TAB PO SCH (09:19)
[2017-09-03] MEDS: metFORMIN 500 MG TAB PO SCH (09:20)
[2017-09-03] MEDS: Alogliptin Benzoate 25 MG TABLET PO SCH (09:20)
[2017-09-03] MEDS: Potassium Chloride 10 MEQ TAB PO SCH (09:20)
[2017-09-03] MEDS: Fish Oil 1,000 MG CAP PO SCH (09:20)
[2017-09-03] MEDS: Carvedilol 6.25 MG TAB PO SCH (09:20)
[2017-09-03] MEDS: Furosemide 40 MG TAB PO SCH (09:21)
[2017-09-03] MEDS: Amlodipine 5 MG TAB PO SCH (09:21)
[2017-09-03] MEDS: Famotidine 20 MG TAB PO SCH (09:21)
--- NOTE | 2017-09-03 13:43 | DIS ---
DATE OF ADMISSION: 08/30/2017 DATE OF DISCHARGE: 09/03/2017 PRIMARY CARE PROVIDER: MATEO Perry ADMITTING DIAGNOSES: 1. Non-ST elevation myocardial infarction. 2. Multivessel coronary artery disease. 3. Status post coronary artery bypass graft x5 during this hospitalization. CONDITION OF PATIENT ON THE DAY OF DISCHARGE: Stable. I assessed Mr. Guzman on the day of discharge. He denies any chest pain or shortness of breath. PHYSICAL EXAMINATION: VITAL SIGNS: Stable. HEART: S1 and S2 are heard, regular. LUNGS: Clear to auscultation bilaterally. DISCHARGE MEDICATIONS: Amlodipine 5 mg daily, aspirin 81 mg daily, Lipitor 40 mg at bedtime, Coreg 1 2.5 mg 2 times a day, Plavix 75 mg daily, Farxiga 10 mg daily, [place] p.r.n., Cozaar 50 mg daily, metf ormin 1000 mg 2 times a day, Restora 1 tablet daily, Protonix 20 mg daily, red yeast rice 1200 mg 2 t imes a day, Januvia 100 mg daily. HOSPITAL COURSE: Mr. Guzman is a pleasant 62-year-old gentleman who was admitted to [facility] on 08/30/2017 for non-ST elevation myocardial infarction. He underwent cardiac cath eterization by the Cardiology Service, Dr. Juanpablo Sharma. He subsequently underwent urgent coronary artery bypass graft x5 by Dr. Gerardo Desir on 08/31/2017. He was seen by cardiac rehabilitation. Tonie moore continued to improve clinically and is being discharged home in a stable condition. Many thanks for allowing me to participate in your patient's care. Please feel free to contact me wi th any questions or concerns. DISCHARGE DESTINATION: Home. TOTAL AMOUNT OF TIME SPENT COORDINATING THIS DISCHARGE: 33 minutes.
--- NOTE | 2017-09-03 15:41 | PDOC.CTH ---
Cardiology Progress Note - Subjective He is doing well. Walking around with PT and himself. Has had normal BM's. - Objective Vital Signs Temp Pulse Resp BP BP Pulse Ox 09/03/17 09:21 81 134/84 09/03/17 09:20 134/84 09/03/17 08:00 98.2 F 81 18 134/84 92 L 09/03/17 04:40 97.9 F 80 20 130/71 93 L Weight 201 lb 14.4 oz 09/02/17 09/03/17 09/04/17 06:59 06:59 06:59 Intake Total 2400 980 240 Output Total 1373 700 Balance 1027 280 240 - Physical Examination General/Neuro: alert & oriented x3, NAD Neck: no JVD present Lungs: CTA, unlabored respirations Heart: RRR Abdomen: NT/ND Extremities: + edema B (1+) - Telemetry Telemetry Rhythm: NSR - Labs Result Diagrams: 09/02/17 04:00 09/02/17 04:00 Troponin/CKMB Troponin I 26.911 ng/mL (< 0.028) H* 08/31/17 04:09 - Assessment/Plan 1. NSTEMI 2. Multivessel CAD s/p CABG 3. HTN 4. DM 5. CVA PLAN: - Continue ASA/statin/BB/ ARB - January d.c home any time from cardiac perspective.
[2017-09-03 16:06] VITALS: BP 154/86
[2017-09-03] MEDS ORDERED: Atorvastatin Calcium 40 MG TAB PO SCH (21:00)
[2017-09-05 15:11] LABS: Oxyhemoglobin 97.6 % (94.0-97.0); Sodium 140 mmol/L (135-148)
[2017-09-05 15:11] LABS: Base Excess -1.9 mEq/L (0 (+/- 2.5)); pH (venous) 7.31 (7.35-7.45)
[2017-09-05 15:11] LABS: Oxyhemoglobin 97.7 % (94.0-97.0); Sodium 140 mmol/L (135-148)
[2017-09-05 15:11] LABS: Oxyhemoglobin 97.7 % (94.0-97.0); Sodium 140 mmol/L (135-148)
[2017-09-05 15:12] LABS: Oxyhemoglobin 97.6 % (94.0-97.0); Sodium 140 mmol/L (135-148)
[2017-09-05 15:13] LABS: Oxyhemoglobin 97.5 % (94.0-97.0); Sodium 141 mmol/L (135-148)
[2017-09-06 07:30] LABS: Mode OR ABG; Vent YES
[2017-09-06 07:31] LABS: Mode OR ABG; Vent YES
[2017-09-06 09:04] LABS: Mode OR ABG; Vent YES
[2017-09-06 09:04] LABS: Mode OR ABG; Vent YES
[2017-09-06 09:05] LABS: Mode OR ABG; Vent YES
== END 2017-09-03 12:10 | disposition home or self-care (01) | DRG 234 ==
LOC: ERS 18:23 → CCU 22:38 → 2NO 09-02 09:22
PROVIDERS: ADMIT Internal Medicine; ATTEND Internal Medicine
PROC: 4A023N7 Measurement of Cardiac Sampling and Pressure, Left Heart, Percutaneous Approach (ICD-10-PCS; principal; 2017-08-31)
PROC: 02100Z9 Bypass Coronary Artery, One Artery from Left Internal Mammary, Open Approach (ICD-10-PCS; 2017-08-31)
PROC: 021309W Bypass Coronary Artery, Four or More Arteries from Aorta with Autologous Venous Tissue, Open Approach (ICD-10-PCS; 2017-08-31)
PROC: 06BQ0ZZ Excision of Left Saphenous Vein, Open Approach (ICD-10-PCS; 2017-08-31)
PROC: B2111ZZ Fluoroscopy of Multiple Coronary Arteries using Low Osmolar Contrast (ICD-10-PCS; 2017-08-31)
PROC: B2151ZZ Fluoroscopy of Left Heart using Low Osmolar Contrast (ICD-10-PCS; 2017-08-31)
PROC: 5A1221Z Performance of Cardiac Output, Continuous (ICD-10-PCS; 2017-08-31)
PROC: 30233R1 Transfusion of Nonautologous Platelets into Peripheral Vein, Percutaneous Approach (ICD-10-PCS; 2017-08-31)
PROC: 30233N1 Transfusion of Nonautologous Red Blood Cells into Peripheral Vein, Percutaneous Approach (ICD-10-PCS; 2017-08-31)
DX: I21.4 Non-ST elevation (NSTEMI) myocardial infarction (principal); J90 Pleural effusion, not elsewhere classified; E11.8 Type 2 diabetes mellitus with unspecified complications; I25.119 Atherosclerotic heart disease of native coronary artery with unspecified angina pectoris; I10 Essential (primary) hypertension; Z79.84 Long term (current) use of oral hypoglycemic drugs; E78.5 Hyperlipidemia, unspecified; E66.9 Obesity, unspecified; Z68.32 Body mass index [BMI] 32.0-32.9, adult; Z86.73 Personal history of transient ischemic attack (TIA), and cerebral infarction without residual deficits; K76.9 Liver disease, unspecified
CPT/HCPCS: 36415; 36416; 36430; 71010; 80048; 80061; 83036; 84484; 85025; 85610; 85730; 86850; 86900; 86901; 93005; 93010; 93306; 93458; 93798; 94150; 94640; 96365; 96366; 96375; 96376; 99152; 99292; 99406; C1751; C1769; J1642; J1644; J1815; J1885; J2001; J2250; J2270; J2704; J2720; J3010; J3475; J3480; J7050; J7620; P9035; P9045; P9059; S0017; S0028

== ENCOUNTER 2019-05-23 12:00 | Inpatient (IN) | payer BC ==
[2019-05-23] MEDS ORDERED: Lorazepam 2 MG/ML VIAL ONE (12:17)
[2019-05-23] MEDS ORDERED: levETIRAcetam In NaCl (Iso-Os) 1,000 MG in Premix Bag 1 BAG IVPB SCH (12:30)
[2019-05-23 13:09] LABS: Hemoglobin 14.3 g/dL (14.0-18.0); Mean Corpuscular HGB CONC 32.6 g/dL (32.0-36.0); Mean Corpuscular Hemoglobin 28.9 pg (27.0-31.0); Mean Corpuscular Volume 88.6 fL (78.0-98.0); Mean Platelet Volume 7.5 fL (7.4-10.4); Platelet Count 364 thou/uL (130-400); RBC Distribution Width 12.3 % (11.5-14.5); Red Blood Cell (RBC) Count 4.94 mill/uL (4.70-6.10); White Blood Cell (WBC) Count 23.3 thou/uL (4.8-10.8)
[2019-05-23 13:29] LABS: ALT (SGPT) 9 U/L (8-55); AST (SGOT) 10 U/L (5-34); Albumin 4.2 g/dL (3.4-4.8); Alkaline Phosphatase 117 U/L (40-150); Anion Gap 23 mmol/L (10-20); BUN (Urea Nitrogen) 12 mg/dL (8.4-25.7); Bilirubin, Total 0.4 mg/dL (0.2-1.2); Calc. Creatinine Clearance 0 mL/min (70-130); Calcium 9.8 mg/dL (7.8-10.44); Carbon Dioxide 13 mmol/L (23-31); Chloride 108 mmol/L (98-107); Estimated GFR-MDRD Greater than 90; Glucose 217 mg/dL (80-115); Potassium 4.5 mmol/L (3.5-5.1); Protein, Total 7.2 g/dL (5.8-8.1); Sodium 139 mmol/L (136-145)
--- NOTE | 2019-05-23 13:31 | CT ---
CT HEAD NONCONTRAST: HISTORY: Seizure. FINDINGS: Right craniotomy defect. Large area of underlying encephalomalacia and parenchymal scarring. No rafael dence of acute intracranial hemorrhage or infarct. No mass effect. Septum pellucidum is midline. V isualized paranasal sinuses are well aerated. IMPRESSION: Extensive postoperative changes of the right cerebral hemisphere and calvarium. No acute intracrania l abnormalities are demonstrated. POS: [facility]
[2019-05-23 13:56] LABS: Band 9 % (5-11); Lymphocytes 16 % (21-51); MDiff Complete? YES; Monocytes 3 % (0-10); Neutrophil 71 % (42-75); Platelet Morphology Comment Appears Adequate; RBC Morphology Normal; Reactive Lymphocytes 1 % (0-10)
[2019-05-23 14:29] LABS: INR-International Normal Ratio 1.2; PTT 31.1 SEC (22.9-36.1); Prothrombin Time 14.7 SEC (12.0-14.7)
[2019-05-23 15:03] LABS: Bilirubin Negative (Negative); Blood, Urine Negative (Negative); Clarity Clear (Clear); Glucose, Urine (Dipstick) >=1000 mg/dL (Negative); Leukocyte Negative Leu/uL (Negative); Nitrite Negative (Negative); Protein, Urine (Dipstick) 20 mg/dL (Neg-Trace); Urobilinogen Normal mg/dL (Less than 2)
[2019-05-23] MEDS ORDERED: Dextrose 5 %-0.45 % NaCl 1,000 ML IV SCH (15:30)
[2019-05-23 15:51] VITALS: BMI 28.4
[2019-05-23] MEDS: Morphine 2 MG/ML SYRINGE SLOW IVP PRN (18:01)
[2019-05-23] MEDS ORDERED: Lorazepam 2 MG/ML VIAL SLOW IVP PRN (18:09)
[2019-05-23] MEDS ORDERED: Acetaminophen 650 MG Suppository PR PRN (18:10)
[2019-05-23] MEDS ORDERED: Acetaminophen 325 MG TAB PO PRN (18:10)
[2019-05-23] MEDS ORDERED: Calcium Carbonate 500 MG ChewTAB PO PRN (18:10)
[2019-05-23] MEDS ORDERED: Senokot S 8.6-50 MG TAB PO PRN (18:10)
[2019-05-23] MEDS ORDERED: Dextrose 5% in Water 1,000 ML IV PRN (18:13)
[2019-05-23] MEDS ORDERED: Insulin Regular 300 UNITS/3 ML VIAL SC PRN (18:13)
[2019-05-23] MEDS ORDERED: Dextrose 50% Abboject 50 ML SYRINGE SLOW IVP PRN (18:13)
[2019-05-23] MEDS: Dextrose 5 %-0.45 % NaCl 1,000 ML IV SCH (19:20)
[2019-05-23] MEDS ORDERED: levETIRAcetam In NaCl (Iso-Os) 1,500 MG in Premix Bag 1 BAG IVPB SCH (21:00)
[2019-05-23] MEDS: levETIRAcetam In NaCl (Iso-Os) 1,000 MG in Premix Bag 1 BAG IVPB SCH (21:51)
[2019-05-23] MEDS: Famotidine/PF 20 mg/2ml Vial SLOW IVP SCH (21:51)
[2019-05-23] MEDS: Atorvastatin Calcium 40 MG TAB PO SCH (21:53)
[2019-05-23] MEDS: Famotidine 20 MG TAB PO SCH (21:53)
[2019-05-24 05:45] LABS: #Basophils 0.1 thou/uL (0.0-0.2); #Eosinphils 0.1 thou/uL (0.0-0.7); #Lymphocytes 2.6 thou/uL (1.20-3.40); #Monocytes 0.9 thou/uL (0.11-0.59); #Neutrophils 6.8 thou/uL (1.40-6.50); %Basophils 0.8 % (0.0-1.0); %Eosinophils 1.3 % (0.0-10.0); %Lymphocytes 25.1 % (21.0-51.0); %Monocytes 8.3 % (0.0-10.0); %Neutrophils 64.5 % (42.0-75.0); Hemoglobin 11.9 g/dL (14.0-18.0); Mean Corpuscular HGB CONC 32.9 g/dL (32.0-36.0); Mean Corpuscular Volume 88.2 fL (78.0-98.0); Mean Platelet Volume 7.3 fL (7.4-10.4); Platelet Count 255 thou/uL (130-400); RBC Distribution Width 12.3 % (11.5-14.5); White Blood Cell (WBC) Count 10.5 thou/uL (4.8-10.8)
[2019-05-24 05:52] LABS: Phosphorus 2.9 mg/dL (2.3-4.7)
[2019-05-24 05:55] LABS: ALT (SGPT) 7 U/L (8-55); AST (SGOT) 12 U/L (5-34); Albumin 3.5 g/dL (3.4-4.8); Alkaline Phosphatase 92 U/L (40-150); Anion Gap 14 mmol/L (10-20); BUN (Urea Nitrogen) 9 mg/dL (8.4-25.7); Bilirubin, Total 0.3 mg/dL (0.2-1.2); Calc. Creatinine Clearance 141 mL/min (70-130); Calcium 9.3 mg/dL (7.8-10.44); Carbon Dioxide 20 mmol/L (23-31); Chloride 108 mmol/L (98-107); Estimated GFR-MDRD Greater than 90; Globulin 2.4 g/dL (2.4-3.5); Glucose 132 mg/dL (80-115); Magnesium 1.8 mg/dL (1.6-2.6); Potassium 3.1 mmol/L (3.5-5.1); Protein, Total 5.9 g/dL (5.8-8.1); Sodium 139 mmol/L (136-145)
[2019-05-24] MEDS: Dextrose 5 %-0.45 % NaCl 1,000 ML IV SCH ×3 (06:35→23:02)
[2019-05-24] MEDS ORDERED: Potassium Chloride 40 MEQ in Premix Bag 1 BAG IVPB SCH (07:30)
--- NOTE | 2019-05-24 08:23 | HP ---
PRIMARY CARE PHYSICIAN: Dhara Tsang NP. CHIEF COMPLAINT: Seizure. HISTORY OF PRESENT ILLNESS: The patient is a 63-year-old male with seizure disorder secondary to intracranial bleed, presented to the emergency room with above complaints. In January of this year, the patient was admitted to [facility] for hemorrhagic CVA. He underwent craniotomy. He has residual left-sided hemiparesis. He is currently on Keppra 1000 mg twice a day. He also has a PEG tube, which is not functioning. He is scheduled next month for removal of the PEG tube. He also has swallow dysfunction and is currently on mechanical soft diet with nectar thick liquid. He is more or less wheelchair dependent. He also has mild cognitive deficits. However, he is able to hold conversation per family. The patient had approximately 1 minute duration of tonic-clonic seizure earlier this morning while he was at home. This was witnessed. He had another four episodes later. One episode occurred in the emergency room. There was no incontinence reported. No tongue biting reported. No fever, chills, or fall reported. At this time, he is somnolent and not much information is available from the patient. In the emergency room, he received 2 mg of Ativan with 1000 mg of Keppra and IV fluids. PAST MEDICAL HISTORY: 1. Seizure disorder. 2. 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 3. Hypertension. 4. Hyperlipidemia. 5. Coronary artery disease status post coronary artery bypass grafting in 2016. 6. Acute Resp failure requiring mechanical ventilation in January 2019. PAST SURGICAL HISTORY: 1. Craniotomy. 2. Coronary artery bypass grafting. 3. Right hand surgery. 4. Eye lid surgery bilaterally. 5. Tracheostomy in January 2019 ALLERGIES: NO KNOWN DRUG ALLERGIES. CURRENT HOME MEDICATION: 1. Keppra 1000 mg twice a day. 2. Carvedilol 12.5 b.i.d. 3. Plavix 75 mg daily. 4. Aspirin 81 mg daily. 5. Losartan 50 mg daily. 6. Metformin 1000 mg b.i.d. 7. Lisinopril 10 mg daily. 8. Fluoxetine 20 mg daily. 9. Lipitor 80 mg at bedtime. 10. Tylenol as needed. 11. Zofran as needed. SOCIAL HISTORY: As discussed above. He quit smoking in 2016. No alcohol or drug use. FAMILY HISTORY: Father due to coronary artery disease. Diabetes runs in his family. REVIEW OF SYSTEMS: Cannot be reliably obtained from the patient due to current cognitive status. PHYSICAL EXAMINATION: VITAL SIGNS: In the emergency room showed temperature 97.6, respirations 22, pulse rate of 78, blood pressure of 164/105, O2 saturation 98% on room air. GENERAL: A 63-year-old male with altered mentation. HEENT: Head; atraumatic, normocephalic. Sclerae anicteric. Pupils equally reacting to light. NECK: Supple. No JVD appreciated. No carotid bruit. LUNGS: Showed diminished air entry at bilateral bases. No wheezing, rales, or rhonchi. HEART: S1, S2 present. Regular rate and rhythm. No rubs or gallops. ABDOMEN: Soft, nontender. Bowel sounds present. EXTREMITIES: No edema or calf tenderness. NEUROLOGIC: Examination could not be reliably done due to current mentation. The patient has hemiparesis on the left side. He spontaneously moving his right side and also to some extent on verbal command. PSYCHIATRY: As discussed above. LYMPH NODES: No palpable lymph nodes in the neck. PERIPHERAL VASCULAR: Radial pulses palpable bilaterally. MUSCULOSKELETAL: No joint or swelling tenderness. LABORATORY FINDINGS: WBC 23.3 without any left shift. Hemoglobin 14.3. PT/INR , PTT normal range. Lactic acid 4.0. Sodium 139, potassium 4.5, chloride of 108, bicarbonate 13, anion gap of 23, BUN 12, creatinine 0.75. was 64. CT scan of the brain by my review was negative for acute findings. Telemetry monitoring by my review showed sinus rhythm. Keppra level after the loading dose was 30. Urinalysis was negative. IMPRESSION: 1. Breakthrough seizure. 2. History of seizure disorder. 3. 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 4. Coronary artery disease status post coronary artery bypass grafting. 5. Hypertension. 6. Hyperlipidemia. 7. Diabetes mellitus, type 2. 8. Former smoker. 9. Metabolic acidosis/lactic acidosis secondary to seizure. 10. Swallowing difficulty, on mechanical soft with nectar thick liquid. 11. Depression, mild, stable. PLAN: 1. The patient will be monitored in the stroke unit. We will continue Keppra IV 1000 mg twice a day. EEG will be obtained. We will consult Neurology Dr. Chung. DVT and GI prophylaxis. Resume other home medications. Consult Physical Therapy and Occupational Therapy. Recheck labs in a.m. Recheck lactic acid in a.m. Consult Speech Therapy. 2. IV fluids. 3. Plan of care was discussed with the patient and the family at the bedside. They stated understanding. Job ID: [id number] [facility]
[2019-05-24] MEDS: Famotidine 20 MG TAB PO SCH ×2 (08:54→23:04)
[2019-05-24] MEDS ORDERED: Enoxaparin Sodium 40 MG/0.4 ML SYRINGE SC SCH (09:00)
[2019-05-24] MEDS: Morphine 2 MG/ML SYRINGE SLOW IVP PRN (09:52)
[2019-05-24] MEDS: levETIRAcetam In NaCl (Iso-Os) 1,000 MG in Premix Bag 1 BAG IVPB SCH ×2 (09:54→22:59)
[2019-05-24] MEDS ORDERED: carBAMazepine 200 MG TAB PO SCH (10:45)
[2019-05-24] MEDS: Famotidine/PF 20 mg/2ml Vial SLOW IVP SCH ×2 (10:48→23:00)
[2019-05-24] MEDS: Carvedilol 6.25 MG TAB PO SCH ×2 (10:57→16:39)
[2019-05-24] MEDS: FLUoxetine HCl 20 MG CAP PO SCH (10:58)
[2019-05-24] MEDS: Lisinopril 10 MG TAB PO SCH (10:58)
[2019-05-24] MEDS: Clopidogrel Bisulfate 75 MG TAB PO SCH (10:58)
[2019-05-24] MEDS: Aspirin 81 mg Enteric Coated Tablet PO SCH (10:58)
--- NOTE | 2019-05-24 11:36 | PDOC.HOSPP ---
- Subjective Encounter Date: 05/24/19 Encounter Time: 11:34 Subjective: Patient seen and examined for seizure. Mentation improving. No seizures overnight. No new complaints. No overnight events - Objective Vital Signs & Weight: Vital Signs (12 hours) Temp Pulse Pulse Pulse Resp BP BP 05/24/19 10:58 147/72 H 05/24/19 10:57 147/72 H 05/24/19 08:55 58 L 55 L 129/70 05/24/19 08:31 59 L 14 05/24/19 07:20 05/24/19 04:00 98.9 F 62 16 05/24/19 00:00 98.8 F 73 16 BP BP Pulse Ox 05/24/19 10:58 05/24/19 10:57 05/24/19 08:55 123/70 05/24/19 08:31 147/72 H 96 05/24/19 07:20 96 05/24/19 04:00 148/77 H 93 L 05/24/19 00:00 158/82 H 93 L Weight Weight 181 lb 6.4 oz Result Diagrams: 05/24/19 04:59 05/24/19 04:59 Additional Labs: Accuchecks 05/24/19 05/24/19 05/23/19 11:10 05:53 20:39 POC Glucose 137 H 121 H 153 H EKG Reviewed by me: Yes (Tele SR) Hospitalist ROS - Review of Systems ROS unobtainable: due to mental status - Medication Medications: Active Medications Generic Name Dose Route Start Last Admin Trade Name Freq PRN Reason Stop Dose Admin Aspirin 81 mg 05/24/19 09:00 05/24/19 10:58 Ecotrin PO 81 mg DAILY ERUM Administration Atorvastatin Calcium 80 mg 05/23/19 21:00 05/23/19 21:53 Lipitor PO 80 mg HS ERUM Administration Carbamazepine 200 mg 05/24/19 10:45 05/24/19 10:58 Tegretol PO 05/24/19 13:00 200 mg NOW ERUM Administration Carvedilol 12.5 mg 05/24/19 08:00 05/24/19 10:57 Coreg PO 12.5 mg BID-WM ERUM Administration Clopidogrel Bisulfate 75 mg 05/24/19 12:00 05/24/19 10:58 Plavix PO 75 mg 1200 ERUM Administration Famotidine 20 mg 05/23/19 21:00 05/24/19 10:48 Pepcid SLOW IVP 20 mg Q12HR ERUM Administration Famotidine 20 mg 05/23/19 21:00 05/24/19 08:54 Pepcid PO Not Given BID ERUM Fluoxetine HCl 20 mg 05/24/19 09:00 05/24/19 10:58 Prozac PO 20 mg QAM ERUM Administration Levetiracetam 1,000 mg/ Device 100 mls @ 200 mls/hr 05/23/19 21:00 05/24/19 09:54 IVPB 100 mls BID ERUM Administration Dextrose/Sodium Chloride 1,000 mls @ 70 mls/hr 05/24/19 07:17 05/24/19 08:53 D5 1/2 Ns IV 1,000 mls .[id number] ERUM Administration Lisinopril 10 mg 05/24/19 09:00 05/24/19 10:58 Zestril PO 10 mg DAILY ERUM Administration Morphine Sulfate 2 mg 05/23/19 17:36 05/24/19 09:52 Morphine SLOW IVP 05/24/19 17:37 2 mg Q4H PRN Administration Pain Sodium Chloride 10 ml 05/23/19 18:10 05/23/19 21:52 Flush - Normal Saline IVF 10 ml PRN PRN Administration Saline Flush - Exam General Appearance: NAD Neck: supple, no JVD Heart: RRR, no gallops, no rubs, normal peripheral pulses Respiratory: CTAB, no wheezes, no rales, no ronchi Gastrointestinal: soft, non-tender, non-distended, normal bowel sounds Gastrointestinal - other findings: PEG tube + Extremities: no edema Neurological: no new deficit Psychiatric: A&O x 3, somnolent Hosp A/P - Plan PT/OT, speech therapy, DVT proph w/lovenox IMPRESSION: 1. Breakthrough seizure. 2. History of seizure disorder. 3. 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 4. Coronary artery disease status post coronary artery bypass grafting. 5. Hypertension. 6. Hyperlipidemia. 7. Diabetes mellitus, type 2. 8. Former smoker. 9. Metabolic acidosis/lactic acidosis secondary to seizure. 10. Swallowing difficulty, on mechanical soft with nectar thick liquid. 11. Depression, mild, stable. 12. Hypokalemia 13. Neuropathy PLAN: EEG pending Cont IV Keppra Tegretol added Change IV Morphine to [place] Add Lyrica (Patient was on Lyrica until last week - out ot prescription) Cont PT/OT/ST Replace Potassium Rehab eval
[2019-05-24] MEDS ORDERED: Pregabalin 50 MG CAP PO SCH (11:45)
[2019-05-24] MEDS: Potassium Chloride 20 MEQ in Premix Bag 1 BAG IVPB SCH ×2 (11:47→13:38)
[2019-05-24] MEDS ORDERED: Morphine 2 MG/ML SYRINGE SLOW IVP PRN (12:17)
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
[2019-05-24] MEDS: HYDROcodone/Acetaminophen 5/325 mg Tablet PO PRN (13:06)
[2019-05-24] MEDS: carBAMazepine 200 MG TAB PO SCH (16:39)
[2019-05-24] MEDS: Pregabalin 50 MG CAP PO SCH ×2 (22:30→23:03)
[2019-05-24] MEDS: Enoxaparin Sodium 30 MG/0.3 ML SYRINGE SC SCH (23:02)
[2019-05-24] MEDS: Atorvastatin Calcium 40 MG TAB PO SCH (23:03)
[2019-05-25] MEDS: Dextrose 5 %-0.45 % NaCl 1,000 ML IV SCH (02:14)
[2019-05-25 05:41] LABS: Anion Gap 13 mmol/L (10-20); BUN (Urea Nitrogen) 5 mg/dL (8.4-25.7); Calc. Creatinine Clearance 137 mL/min (70-130); Calcium 9.1 mg/dL (7.8-10.44); Carbon Dioxide 22 mmol/L (23-31); Chloride 108 mmol/L (98-107); Estimated GFR-MDRD Greater than 90; Glucose 134 mg/dL (80-115); Potassium 3.5 mmol/L (3.5-5.1); Sodium 139 mmol/L (136-145)
[2019-05-25] MEDS: Carvedilol 6.25 MG TAB PO SCH ×2 (08:44→16:52)
[2019-05-25] MEDS: Aspirin 81 mg Enteric Coated Tablet PO SCH (08:44)
[2019-05-25] MEDS: Famotidine 20 MG TAB PO SCH ×2 (08:44→21:46)
[2019-05-25] MEDS: carBAMazepine 200 MG TAB PO SCH ×2 (08:45→16:52)
[2019-05-25] MEDS: Lisinopril 10 MG TAB PO SCH (08:46)
[2019-05-25] MEDS: FLUoxetine HCl 20 MG CAP PO SCH (08:46)
[2019-05-25] MEDS: Famotidine/PF 20 mg/2ml Vial SLOW IVP SCH (08:47)
[2019-05-25] MEDS: Pregabalin 50 MG CAP PO SCH ×2 (08:51→21:46)
[2019-05-25] MEDS ORDERED: Dextrose 5 %-0.45 % NaCl 1,000 ML IV SCH ×2 (10:09→10:20)
[2019-05-25] MEDS ORDERED: Bisacodyl 10 MG SUPP PR PRN (10:10)
[2019-05-25] MEDS ORDERED: Losartan 25 MG TAB PO SCH (10:15)
[2019-05-25] MEDS: levETIRAcetam In NaCl (Iso-Os) 1,000 MG in Premix Bag 1 BAG IVPB SCH (11:25)
[2019-05-25] MEDS ORDERED: Lorazepam 1 MG TAB PO PRN (11:31)
[2019-05-25] MEDS: Insulin Regular 300 UNITS/3 ML VIAL SC PRN ×2 (12:06→17:36)
[2019-05-25] MEDS: Clopidogrel Bisulfate 75 MG TAB PO SCH (12:29)
[2019-05-25] MEDS ORDERED: Gadobenate Dimeglumine 529 MG/1 ML (20ML VIAL) ONE (12:52)
--- NOTE | 2019-05-25 13:29 | MRI ---
Brain MRI without contrast 05/25/2019 COMPARISON: None HISTORY: Prior stroke, altered mental status TECHNIQUE: Multiplanar multisequence MR imaging of the brain obtained without contrast FINDINGS: There is extensive encephalomalacia involving the MCA territory on the right, consistent wi th the patient's history of prior right MCA infarction. There are interspersed areas of blooming artifact associated with this prior infarction consistent with blood products. This suggests that at the time of acute infarction there was associated hemorrhage. Recent CT performed 05/23/2019 demonstrated no evidence for acute hemorrhage. There is evidence of prior right sided craniotomy overlying the right MCA encephalomalacia. On the diffusion weighted imaging there are scattered areas of restricted diffusion within the areas of signal abnormality within the MCA territory on the right. Without comparison imaging this is of uncertain clinical significance/etiology. Findings could be related to an old infarction with new sup erimposed areas of acute infarction. Restricted diffusion associated with tumor or residual intra-axial hemorrhage from a prior bleed and/or surgery are possibilities as well. No midline shift is seen on this examination. There is a heterogeneous area of T2 iso-/hyperintensity and slight T1 hyperintensity within the poste rior right temporal region, best seen on axial image 13, measuring 1.4 x 3.6 cm. This likely represents residual intra-axial hematoma. Tumor cannot be excluded. Arterial flow voids at axial level of skull base appear grossly unremarkable on the T2-weighted imagi ng. Imaged paranasal sinuses and mastoid air cells appear grossly unremarkable. IMPRESSION: Extensive abnormal signal within the MCA territory on the right. There are areas of restr icted diffusion as detailed above, which may represent small areas of acute infarction superimposed on an area of prior infarction. Heterogeneous intra-axial signal intensity within the MCA territory c ould be related to residual intra-axial hemorrhage or even tumor. Recommend postcontrast imaging now and follow-up imaging in 4-6 weeks with and without contrast. CODE T
--- NOTE | 2019-05-25 15:05 | MRI ---
MRI brain with contrast: DATE: 05/25/2019 Time: 2:44 PM HISTORY: 63-year-old male with prior stroke and current altered mental status. Abnormalities on noncontrast br ain MRI which are of indeterminate etiology. TECHNIQUE IV injection of MultiHance. Postcontrast T1 weighted sagittal sequence, axial MPGR, and coronal refor mats. FINDINGS: Moderately large region of right temporal lobe encephalomalacia and gliosis plus involvement of right thalamus and much of right corpus striatum. 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 There is patchy, very irregular curvilinear enhancement involving much of the abnormal brain parenchy ma, including in the right thalamus, adjacent posterior aspect of right basal ganglia, and adjacent superior medial edge of right temporal operculum. Based on the finding of restricted diffusion that r oughly corresponds to the irregular curvilinear patchy enhancement, the findings may represent superimposed acute or subacute right MCA territory infarctions superimposed on old infarctions (and s uperimposed on prior hemorrhagic conversion of infarctions). The alternative possibility of the enhancement could represent infection, but that is less likely. Neoplasm is also less likely but not entirely excluded. IMPRESSION: 1.) Deep to the old right craniotomy changes, there is a somewhat large, heterogeneous area of enceph alomalacia and gliosis, probably representing old infarction in the right middle cerebral artery territory, complicated by prior hemorrhagic conversion (currently there is no acute hemorrhage). 2) irregular, curvilinear extensive regions of enhancement with restricted diffusion within this abno rmal right-sided brain parenchyma. This may represent superimposed acute or subacute infarctions superimposed on the old infarction. 3) recommend follow-up MRI of the brain with and without contrast in 4-6 weeks.
--- NOTE | 2019-05-25 15:40 | PRG ---
DATE OF TELEMEDICINE SERVICE: 05/25/2019 CHIEF COMPLAINT: Seizures. INTERVAL HISTORY: was in the room as well. She reports that he is more communicative and has done better since the addition of carbamazepine. Today, he is conversant, and he is trying to talk to us and is cooperative and follows commands. His current workup; lab results; white count 10.5, hemoglobin 11.9, hematocrit 36.2, and platelet count 255. Chemistry; sodium 139, potassium 3.5, chloride 108, bicarb 22, BUN 5, creatinine 0.66, and glucose 134. His MRI of the brain was completed today. His MRI showed extensive abnormal signal within the right MCA territory and areas of restricted diffusion representing small areas of acute infarct superimposed on an area of prior infarct. Followup imaging is recommended. PHYSICAL EXAMINATION: VITAL SIGNS: Temperature 97.3, pulse 63, blood pressure 180/96 GENERAL APPEARANCE: Well-built, well-nourished man who is sleepy, but cooperative and talking. NEUROLOGIC: Higher intellectual functions, normal orientation. Cranial nerves, left facial droop. Motor examination, strength 5/5 on the right side and 0/5 on the left. IMPRESSION AND PLAN: The patient is a 63-year-old man with right middle cerebral artery infarct recently. Per , with regard to the weakness on the left side, he also had a seizure witnessed by her. His examination showed weakness and dense hemiparesis on the left side. I requested an MRI to confirm that he did not have a newest infarct. On MRI, we do see additional restrictive areas of diffusion confirming that there is a superimposed infarct here, raising concern for future infarcts is none. He will need postcontrast imaging as well, which I will go ahead and order to make sure there is no tumor per Radiology report. We also need to review his cardiac status and consider additional antiplatelet agents if needed. I will order an MRI with contrast to clarify the question whether he has a tumor. I will see him again tomorrow. Job ID: [id number] [facility]
--- NOTE | 2019-05-25 16:44 | PDOC.HOSPP ---
- Subjective Encounter Date: 05/25/19 Encounter Time: 10:15 Subjective: Patient seen and examined for Seizure. Mentation better. No new seizures. No new focal deficits. No new complaints. No overnight events - Objective Vital Signs & Weight: Vital Signs (12 hours) Temp Pulse Pulse Pulse Resp BP BP 05/25/19 15:00 98.3 F 67 16 05/25/19 13:36 61 65 169/87 H 05/25/19 11:00 98.1 F 66 16 05/25/19 08:46 180/96 H 05/25/19 08:44 180/96 H 05/25/19 07:00 97.3 F L 63 16 BP BP Pulse Ox 05/25/19 15:00 187/97 H 96 05/25/19 13:36 166/99 H 05/25/19 11:00 142/83 H 95 05/25/19 08:46 94 L 05/25/19 08:44 05/25/19 07:00 180/96 H 94 L Weight Weight 181 lb 6.4 oz I&O: 05/24/19 05/25/19 05/26/19 06:59 06:59 06:59 Intake Total 600 Balance 600 Result Diagrams: 05/24/19 04:59 05/25/19 05:18 Additional Labs: Accuchecks 05/25/19 05/25/19 05/24/19 10:43 05:51 20:14 POC Glucose 179 H 134 H 179 H 05/24/19 16:46 POC Glucose 142 H EKG Reviewed by me: Yes (Tele SR) Hospitalist ROS - Review of Systems Respiratory: denies: cough, dry, shortness of breath, hemoptysis, SOB with excertion, pleuritic pain, sputum, wheezing, other Cardiovascular: denies: chest pain, palpitations, orthopnea, paroxysmal noc. dyspnea, edema, light headedness, other - Medication Medications: Active Medications Generic Name Dose Route Start Last Admin Trade Name Freq PRN Reason Stop Dose Admin Hydrocodone Bitart/Acetaminophen 1 tab 05/24/19 11:31 05/24/19 13:06 [place] 5/325 PO 1 tab Q6H PRN Administration Moderate Pain (4-6) Aspirin 81 mg 05/24/19 09:00 05/25/19 08:44 Ecotrin PO 81 mg DAILY ERUM Administration Atorvastatin Calcium 80 mg 05/23/19 21:00 05/24/19 23:03 Lipitor PO 80 mg HS ERUM Administration Carbamazepine 200 mg 05/24/19 17:00 05/25/19 08:45 Tegretol PO 200 mg BID-WM ERUM Administration Carvedilol 12.5 mg 05/24/19 08:00 05/25/19 08:44 Coreg PO 12.5 mg BID-WM ERUM Administration Clopidogrel Bisulfate 75 mg 05/24/19 12:00 05/25/19 12:29 Plavix PO 75 mg 1200 ERUM Administration Enoxaparin Sodium 30 mg 05/24/19 21:00 05/24/19 23:02 Lovenox SC 30 mg 2100 ERUM Administration Famotidine 20 mg 05/23/19 21:00 05/25/19 08:44 Pepcid PO 20 mg BID ERUM Administration Fluoxetine HCl 20 mg 05/24/19 09:00 05/25/19 08:46 Prozac PO 20 mg QAM ERUM Administration Dextrose/Sodium Chloride 1,000 mls @ 30 mls/hr 05/25/19 10:20 05/25/19 10:44 D5 1/2 Ns IV 1,000 mls .Q24H ERUM Administration Insulin Human Regular 0 units 05/23/19 18:13 05/25/19 12:06 Humulin R SC 2 unit .MILD SLIDING SCALE PRN Administration Mild Correctional Scale Lisinopril 10 mg 05/24/19 09:00 05/25/19 08:46 Zestril PO 10 mg DAILY ERUM Administration Lorazepam 1 mg 05/25/19 11:31 05/25/19 12:04 Ativan PO 1 mg DAILYPRN PRN Administration Claustrophobia Pregabalin 50 mg 05/24/19 21:00 05/25/19 08:51 Lyrica PO 50 mg BID ERUM Administration Sodium Chloride 10 ml 05/23/19 18:10 05/23/19 21:52 Flush - Normal Saline IVF 10 ml PRN PRN Administration Saline Flush - Exam General Appearance: NAD Heart: RRR, no gallops Respiratory: CTAB, no rales Gastrointestinal: soft, non-tender, normal bowel sounds Extremities: no edema Neurological: no new deficit Hosp A/P - Plan plan discussed w/ family, DVT proph w/lovenox IMPRESSION: 1. Breakthrough seizure. 2. History of seizure disorder. 3. 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 4. Coronary artery disease status post coronary artery bypass grafting. 5. Hypertension. 6. Hyperlipidemia. 7. Diabetes mellitus, type 2. 8. Former smoker. 9. Metabolic acidosis/lactic acidosis secondary to seizure. 10. Swallowing difficulty, on mechanical soft with nectar thick liquid. 11. Depression, mild, stable. 12. Hypokalemia 13. Neuropathy PLAN: EEG - negative per Dr Fischer Change Keppra to PO Resume Losartan DC IVF Cont Tegretol Cont Lyrica and other meds as above MRI brain per Neuro rec. Rehab eval pending
[2019-05-25] MEDS: Labetalol HCl 100 MG/20 ML VIAL SLOW IVP PRN ×2 (19:00→21:56)
[2019-05-25] MEDS ORDERED: Famotidine 20 MG TAB PO SCH (21:00)
[2019-05-25] MEDS: levETIRAcetam 500 mg/5 ml Oral Solution PO SCH (21:45)
[2019-05-25] MEDS: Enoxaparin Sodium 30 MG/0.3 ML SYRINGE SC SCH (21:45)
[2019-05-25] MEDS: Atorvastatin Calcium 40 MG TAB PO SCH (21:46)
[2019-05-26] MEDS ORDERED: cloNIDine 0.1 MG TAB PO PRN (01:09)
[2019-05-26] MEDS ORDERED: hydrALAZINE 20 MG/ML VIAL SLOW IVP PRN (01:10)
[2019-05-26] MEDS ORDERED: Losartan 25 MG TAB PO SCH (09:00)
[2019-05-26] MEDS: carBAMazepine 200 MG TAB PO SCH ×2 (09:42→16:39)
[2019-05-26] MEDS: Aspirin 81 mg Enteric Coated Tablet PO SCH (09:42)
[2019-05-26] MEDS: Carvedilol 6.25 MG TAB PO SCH ×2 (09:42→16:38)
[2019-05-26] MEDS: Pregabalin 50 MG CAP PO SCH ×2 (09:43→22:27)
[2019-05-26] MEDS: Lisinopril 10 MG TAB PO SCH (09:43)
[2019-05-26] MEDS: Famotidine 20 MG TAB PO SCH ×2 (09:43→22:27)
[2019-05-26] MEDS: FLUoxetine HCl 20 MG CAP PO SCH (09:43)
[2019-05-26] MEDS: HYDROcodone/Acetaminophen 5/325 mg Tablet PO PRN (09:44)
[2019-05-26] MEDS: Senokot S 8.6-50 MG TAB PO SCH (09:44)
[2019-05-26] MEDS: levETIRAcetam 500 mg/5 ml Oral Solution PO SCH ×2 (09:45→22:28)
--- NOTE | 2019-05-26 10:46 | PDOC.HOSPP ---
- Subjective Encounter Date: 05/26/19 Encounter Time: 10:42 Subjective: Patient seen and examined, daughter and son at bedside, all questions answered. - Objective Vital Signs & Weight: Vital Signs (12 hours) Temp Pulse Resp BP BP Pulse Ox 05/26/19 09:43 171/98 H 05/26/19 09:42 171/98 H 05/26/19 07:00 98.3 F 82 16 171/98 H 97 05/26/19 04:16 96 05/26/19 03:00 97.7 F 70 16 143/85 H 96 05/26/19 01:45 69 163/91 H 05/26/19 01:33 64 192/96 H 05/25/19 23:00 97.2 F L 64 16 192/96 H 98 Weight Weight 181 lb 6.4 oz I&O: 05/25/19 05/26/19 05/27/19 06:59 06:59 06:59 Intake Total 600 Output Total 200 Balance 600 -200 Result Diagrams: 05/24/19 04:59 05/25/19 05:18 Additional Labs: Accuchecks 05/26/19 05/25/19 05/25/19 05:16 20:34 16:48 POC Glucose 135 H 159 H 175 H 05/25/19 10:43 POC Glucose 179 H Hospitalist ROS - Medication Medications: Active Medications Generic Name Dose Route Start Last Admin Trade Name Freq PRN Reason Stop Dose Admin Hydrocodone Bitart/Acetaminophen 1 tab 05/24/19 11:31 05/26/19 09:44 [place] 5/325 PO 1 tab Q6H PRN Administration Moderate Pain (4-6) Aspirin 81 mg 05/24/19 09:00 05/26/19 09:42 Ecotrin PO 81 mg DAILY ERUM Administration Atorvastatin Calcium 80 mg 05/23/19 21:00 05/25/19 21:46 Lipitor PO 80 mg HS ERUM Administration Carbamazepine 200 mg 05/24/19 17:00 05/26/19 09:42 Tegretol PO 200 mg BID-WM ERUM Administration Carvedilol 12.5 mg 05/24/19 08:00 05/26/19 09:42 Coreg PO 12.5 mg BID-WM ERUM Administration Clopidogrel Bisulfate 75 mg 05/24/19 12:00 05/25/19 12:29 Plavix PO 75 mg 1200 ERUM Administration Enoxaparin Sodium 30 mg 05/24/19 21:00 05/25/19 21:45 Lovenox SC 30 mg 2100 ERUM Administration Famotidine 20 mg 05/23/19 21:00 05/26/19 09:43 Pepcid PO 20 mg BID ERUM Administration Fluoxetine HCl 20 mg 05/24/19 09:00 05/26/19 09:43 Prozac PO 20 mg QAM ERUM Administration Hydralazine HCl 10 mg 05/26/19 01:10 05/26/19 01:33 Apresoline SLOW IVP 10 mg Q4H PRN Administration SBP > 180 and HR < 70 Insulin Human Regular 0 units 05/23/19 18:13 05/25/19 17:36 Humulin R SC 2 unit .MILD SLIDING SCALE PRN Administration Mild Correctional Scale Labetalol HCl 10 mg 05/23/19 18:15 05/25/19 21:56 Normodyne SLOW IVP 10 mg Q4H PRN Administration Systolic BP > 180 Levetiracetam 1,000 mg 05/25/19 21:00 05/26/19 09:45 Keppra Oral Solution PO 1,000 mg BID ERUM Administration Lisinopril 30 mg 05/26/19 08:46 05/26/19 09:43 Zestril PO 30 mg DAILY ERUM Administration Lorazepam 1 mg 05/25/19 11:31 05/25/19 12:04 Ativan PO 1 mg DAILYPRN PRN Administration Claustrophobia Pregabalin 50 mg 05/24/19 21:00 05/26/19 09:43 Lyrica PO 50 mg BID ERUM Administration Senna/Docusate Sodium 1 tab 05/26/19 09:00 05/26/19 09:44 Senokot S PO 1 tab QAM ERUM Administration Sodium Chloride 10 ml 05/23/19 18:10 05/26/19 01:34 Flush - Normal Saline IVF 10 ml PRN PRN Administration Saline Flush - Exam General Appearance: NAD, awake alert Eye: PERRL, anicteric sclera ENT: normocephalic atraumatic, no oropharyngeal lesions Neck: supple, symmetric, no JVD, no thyromegaly Heart: RRR, no murmur, no gallops, no rubs Respiratory: CTAB, no wheezes, no rales, no ronchi Gastrointestinal: soft, non-tender, non-distended, normal bowel sounds Extremities: no cyanosis, no clubbing, 1+ LE edema Extremeties - other findings: LUE paralysis Hosp A/P (1) History of CVA (cerebrovascular accident) Code(s): Z86.73 - PRSNL HX OF TIA (TIA), AND CEREB INFRC W/O RESID DEFICITS Status: Acute (2) DM2 (diabetes mellitus, type 2) Status: Chronic (3) Dyslipidemia Code(s): E78.5 - HYPERLIPIDEMIA, UNSPECIFIED Status: Chronic (4) HTN (hypertension) Code(s): I10 - ESSENTIAL (PRIMARY) HYPERTENSION Status: Chronic - Plan - cont current plan of care - ASA + statin - PT/OT eval - DC to rehab once arrangements arranged - case and plan d/w patient and family at [facility], they understood and agreed with this plan.
[2019-05-26] MEDS: Clopidogrel Bisulfate 75 MG TAB PO SCH (12:00)
--- NOTE | 2019-05-26 15:01 | PRG ---
DATE OF TELEMEDICINE SERVICE: 05/26/2019 CHIEF COMPLAINT: Acute stroke. INTERVAL HISTORY: The patient and report that he is doing better with regard to his level of alertness. No further seizures are noted. His most recent MRI , pre and post contrast MRI is finally reported and this diagnosis is most consistent with acute or subacute infarct superimposed on the old infarct on the right brain parenchyma. PHYSICAL EXAMINATION: VITAL SIGNS: Temperature 98.3, pulse 82, respiratory rate 16, and blood pressure 171/98. GENERAL: Well-built, well-nourished man, who is comfortable in bed. NEUROLOGIC: Higher intellectual functions normal. Orientation to time, place, and person. Cranial nerves, facial asymmetry with left facial droop. Motor exam; bulk normal. Tone normal. Strength 5/5 on the right side and strength on the left side unchanged from yesterday, it is about 0 to 1/5. IMPRESSION: The patient with pre-existing cerebrovascular accident in the right brain parenchyma in the middle cerebral artery distribution now has superimposed cerebrovascular accident in the right parietal lobe area as evidenced by the MRI of the brain. His examination shows left-sided weakness. RECOMMENDATIONS: At this time, continue Plavix, statin, increase aspirin 325 mg per day, and I will see him as needed. I understand he is being discharged. Job ID: [id number] [facility]
[2019-05-26] MEDS: Insulin Regular 300 UNITS/3 ML VIAL SC PRN (17:19)
[2019-05-26] MEDS: Atorvastatin Calcium 40 MG TAB PO SCH (22:27)
[2019-05-26] MEDS: Enoxaparin Sodium 30 MG/0.3 ML SYRINGE SC SCH (22:28)
[2019-05-27] MEDS: carBAMazepine 200 MG TAB PO SCH ×2 (08:51→17:27)
[2019-05-27] MEDS: Carvedilol 6.25 MG TAB PO SCH ×2 (08:51→17:27)
[2019-05-27] MEDS: Aspirin 325 MG TAB PO SCH (08:53)
[2019-05-27] MEDS: Famotidine 20 MG TAB PO SCH ×2 (08:53→20:21)
[2019-05-27] MEDS: levETIRAcetam 500 mg/5 ml Oral Solution PO SCH ×2 (08:54→20:20)
[2019-05-27] MEDS: Pregabalin 50 MG CAP PO SCH ×2 (08:54→20:21)
[2019-05-27] MEDS: FLUoxetine HCl 20 MG CAP PO SCH (08:54)
[2019-05-27] MEDS: Lisinopril 10 MG TAB PO SCH (08:54)
[2019-05-27] MEDS: Senokot S 8.6-50 MG TAB PO SCH (08:55)
[2019-05-27] MEDS: HYDROcodone/Acetaminophen 5/325 mg Tablet PO PRN (08:55)
[2019-05-27] MEDS: Insulin Regular 300 UNITS/3 ML VIAL SC PRN (10:55)
--- NOTE | 2019-05-27 11:45 | PDOC.HOSPP ---
- Subjective Encounter Date: 05/27/19 Encounter Time: 10:00 Subjective: awake, responds to verbal stimuli is eating [facility] soft diet per staff - Objective Vital Signs & Weight: Vital Signs (12 hours) Temp Pulse Resp BP BP Pulse Ox 05/27/19 11:41 97.7 F 62 16 148/83 H 94 L 05/27/19 08:54 140/80 05/27/19 08:51 140/80 05/27/19 07:40 98.6 F 66 16 140/80 94 L 05/27/19 04:08 98.2 F 61 16 148/79 H 96 Weight Weight 181 lb 6.4 oz I&O: 05/26/19 05/27/19 05/28/19 06:59 06:59 06:59 Intake Total 600 Output Total 200 Balance -200 600 Result Diagrams: 05/24/19 04:59 05/25/19 05:18 Additional Labs: Accuchecks 05/27/19 05/27/19 05/26/19 10:44 05:32 20:29 POC Glucose 167 H 113 H 169 H 05/26/19 16:41 POC Glucose 221 H Hospitalist ROS - Medication Medications: Active Medications Generic Name Dose Route Start Last Admin Trade Name Freq PRN Reason Stop Dose Admin Hydrocodone Bitart/Acetaminophen 1 tab 05/24/19 11:31 05/27/19 08:55 [place] 5/325 PO 1 tab Q6H PRN Administration Moderate Pain (4-6) Aspirin 325 mg 05/27/19 09:00 05/27/19 08:53 Aspirin PO 325 mg DAILY ERUM Administration Atorvastatin Calcium 80 mg 05/23/19 21:00 05/26/19 22:27 Lipitor PO 80 mg HS ERUM Administration Bisacodyl 10 mg 05/25/19 10:10 05/27/19 09:01 Dulcolax [place] 10 mg DAILYPRN PRN Administration Constipation Carbamazepine 200 mg 05/24/19 17:00 05/27/19 08:51 Tegretol PO 200 mg BID-WM ERUM Administration Carvedilol 12.5 mg 05/24/19 08:00 05/27/19 08:51 Coreg PO 12.5 mg BID-WM ERUM Administration Clopidogrel Bisulfate 75 mg 05/24/19 12:00 05/26/19 12:00 Plavix PO 75 mg 1200 ERUM Administration Enoxaparin Sodium 30 mg 05/24/19 21:00 05/26/19 22:28 Lovenox SC 30 mg 2100 ERUM Administration Famotidine 20 mg 05/23/19 21:00 05/27/19 08:53 Pepcid PO 20 mg BID ERUM Administration Fluoxetine HCl 20 mg 05/24/19 09:00 05/27/19 08:54 Prozac PO 20 mg QAM ERUM Administration Hydralazine HCl 10 mg 05/26/19 01:10 05/26/19 01:33 Apresoline SLOW IVP 10 mg Q4H PRN Administration SBP > 180 and HR < 70 Insulin Human Regular 0 units 05/23/19 18:13 05/27/19 10:55 Humulin R SC 2 unit .MILD SLIDING SCALE PRN Administration Mild Correctional Scale Labetalol HCl 10 mg 05/23/19 18:15 05/25/19 21:56 Normodyne SLOW IVP 10 mg Q4H PRN Administration Systolic BP > 180 Levetiracetam 1,000 mg 05/25/19 21:00 05/27/19 08:54 Keppra Oral Solution PO 1,000 mg BID ERUM Administration Lisinopril 30 mg 05/26/19 08:46 05/27/19 08:54 Zestril PO 30 mg DAILY ERUM Administration Lorazepam 1 mg 05/25/19 11:31 05/25/19 12:04 Ativan PO 1 mg DAILYPRN PRN Administration Claustrophobia Pregabalin 50 mg 05/24/19 21:00 05/27/19 08:54 Lyrica PO 50 mg BID ERUM Administration Senna/Docusate Sodium 1 tab 05/26/19 09:00 05/27/19 08:55 Senokot S PO 1 tab QAM ERUM Administration Sodium Chloride 10 ml 05/23/19 18:10 05/26/19 22:28 Flush - Normal Saline IVF 10 ml PRN PRN Administration Saline Flush - Exam General Appearance: NAD, awake alert Eye: PERRL, anicteric sclera ENT: no oropharyngeal lesions, moist mucosa Neck: supple, no JVD Heart: RRR, no murmur Respiratory: no wheezes, no rales Gastrointestinal: soft, non-tender, normal bowel sounds Extremities: no clubbing, no edema Neurological - other findings: left hemiplegia Psychiatric: normal affect, A&O x 3 Hosp A/P (1) Acute CVA (cerebrovascular accident) Code(s): I63.9 - CEREBRAL INFARCTION, UNSPECIFIED Status: Acute (2) CAD (coronary artery disease) Code(s): I25.10 - ATHSCL HEART DISEASE OF [place] CORONARY ARTERY W/O ANG PCTRS Status: Chronic Qualifiers: Coronary Disease-Associated Artery/Lesion type: bypass graft [place] vs. transplanted heart: [place] heart Associated angina: without angina Qualified Code(s): I25.810 - Atherosclerosis of coronary artery bypass graft(s) without angina pectoris (3) Seizure disorder Code(s): G40.909 - EPILEPSY, UNSP, NOT INTRACTABLE, WITHOUT STATUS EPILEPTICUS Status: Chronic Plan: with breakthrough seizure (4) History of CVA (cerebrovascular accident) Code(s): Z86.73 - PRSNL HX OF TIA (TIA), AND CEREB INFRC W/O RESID DEFICITS Status: Chronic Plan: left hemiplegia (5) DM2 (diabetes mellitus, type 2) Status: Chronic Qualifiers: Diabetes mellitus [facility] insulin use: without superintendent terminal use (6) Dyslipidemia Code(s): E78.5 - HYPERLIPIDEMIA, UNSPECIFIED Status: Chronic (7) HTN (hypertension) Code(s): I10 - ESSENTIAL (PRIMARY) HYPERTENSION Status: Chronic Qualifiers: Hypertension type: essential hypertension Qualified Code(s): I10 - Essential (primary) hypertension - Plan is stable on current meds for seizure-keppra and tegretol to mobilize as tolerated with PT awaiting rehab approval, may dc if accepted continue asp, lipitor, prozac, lisinopril, coreg, cozaar and lyrica hemo/neurostable
[2019-05-27] MEDS: Clopidogrel Bisulfate 75 MG TAB PO SCH (12:44)
[2019-05-27] MEDS: Atorvastatin Calcium 40 MG TAB PO SCH (20:21)
[2019-05-27] MEDS: Enoxaparin Sodium 30 MG/0.3 ML SYRINGE SC SCH (20:21)
[2019-05-28] MEDS: Pregabalin 50 MG CAP PO SCH ×2 (08:57→20:49)
[2019-05-28] MEDS: Famotidine 20 MG TAB PO SCH ×2 (09:12→20:48)
[2019-05-28] MEDS: carBAMazepine 200 MG TAB PO SCH ×2 (09:12→17:01)
[2019-05-28] MEDS: Aspirin 325 MG TAB PO SCH (09:12)
[2019-05-28] MEDS: Lisinopril 10 MG TAB PO SCH (09:13)
[2019-05-28] MEDS: Carvedilol 6.25 MG TAB PO SCH ×2 (09:13→17:01)
[2019-05-28] MEDS: Senokot S 8.6-50 MG TAB PO SCH (09:14)
[2019-05-28] MEDS: FLUoxetine HCl 20 MG CAP PO SCH (09:15)
[2019-05-28] MEDS: levETIRAcetam 500 mg/5 ml Oral Solution PO SCH ×2 (09:15→20:49)
[2019-05-28] MEDS: Clopidogrel Bisulfate 75 MG TAB PO SCH (12:04)
--- NOTE | 2019-05-28 12:24 | PDOC.HOSPP ---
- Subjective Encounter Date: 05/28/19 Encounter Time: 07:00 Subjective: awakens easily, not in distress follows verbal stimuli - Objective Vital Signs & Weight: Vital Signs (12 hours) Temp Pulse Resp BP BP Pulse Ox 05/28/19 11:40 98.2 F 71 16 149/81 H 93 L 05/28/19 09:13 159/85 H 05/28/19 08:50 93 L 05/28/19 07:42 98.1 F 72 17 159/85 H 93 L 05/28/19 04:00 98.4 F 78 16 140/79 95 Weight Weight 181 lb 6.4 oz I&O: 05/27/19 05/28/19 05/29/19 06:59 06:59 06:59 Intake Total 600 750 Balance 600 750 Result Diagrams: 05/24/19 04:59 05/25/19 05:18 Additional Labs: Accuchecks 05/28/19 05/28/19 05/27/19 10:48 05:36 20:34 POC Glucose 157 H 125 H 192 H 05/27/19 16:37 POC Glucose 120 H Hospitalist ROS - Medication Medications: Active Medications Generic Name Dose Route Start Last Admin Trade Name Freq PRN Reason Stop Dose Admin Hydrocodone Bitart/Acetaminophen 1 tab 05/24/19 11:31 05/27/19 08:55 [place] 5/325 PO 1 tab Q6H PRN Administration Moderate Pain (4-6) Aspirin 325 mg 05/27/19 09:00 05/28/19 09:12 Aspirin PO 325 mg DAILY ERUM Administration Atorvastatin Calcium 80 mg 05/23/19 21:00 05/27/19 20:21 Lipitor PO 80 mg HS ERUM Administration Bisacodyl 10 mg 05/25/19 10:10 05/27/19 09:01 Dulcolax [place] 10 mg DAILYPRN PRN Administration Constipation Carbamazepine 200 mg 05/24/19 17:00 05/28/19 09:12 Tegretol PO 200 mg BID-WM ERUM Administration Carvedilol 12.5 mg 05/24/19 08:00 05/28/19 09:13 Coreg PO 12.5 mg BID-WM ERUM Administration Clopidogrel Bisulfate 75 mg 05/24/19 12:00 05/28/19 12:04 Plavix PO 75 mg 1200 ERUM Administration Enoxaparin Sodium 30 mg 05/24/19 21:00 05/27/19 20:21 Lovenox SC 30 mg 2100 ERUM Administration Famotidine 20 mg 05/23/19 21:00 05/28/19 09:12 Pepcid PO 20 mg BID ERUM Administration Fluoxetine HCl 20 mg 05/24/19 09:00 05/28/19 09:15 Prozac PO 20 mg QAM ERUM Administration Hydralazine HCl 10 mg 05/26/19 01:10 05/26/19 01:33 Apresoline SLOW IVP 10 mg Q4H PRN Administration SBP > 180 and HR < 70 Insulin Human Regular 0 units 05/23/19 18:13 05/27/19 10:55 Humulin R SC 2 unit .MILD SLIDING SCALE PRN Administration Mild Correctional Scale Labetalol HCl 10 mg 05/23/19 18:15 05/25/19 21:56 Normodyne SLOW IVP 10 mg Q4H PRN Administration Systolic BP > 180 Levetiracetam 1,000 mg 05/25/19 21:00 05/28/19 09:15 Keppra Oral Solution PO 1,000 mg BID ERUM Administration Lisinopril 30 mg 05/26/19 08:46 05/28/19 09:13 Zestril PO 30 mg DAILY ERUM Administration Lorazepam 1 mg 05/25/19 11:31 05/25/19 12:04 Ativan PO 1 mg DAILYPRN PRN Administration Claustrophobia Pregabalin 50 mg 05/24/19 21:00 05/28/19 08:57 Lyrica PO 50 mg BID ERUM Administration Senna/Docusate Sodium 1 tab 05/26/19 09:00 05/28/19 09:14 Senokot S PO 1 tab QAM ERUM Administration Sodium Chloride 10 ml 05/23/19 18:10 05/26/19 22:28 Flush - Normal Saline IVF 10 ml PRN PRN Administration Saline Flush - Exam General Appearance: NAD, awake alert Eye: PERRL, anicteric sclera ENT: no oropharyngeal lesions, moist mucosa Neck: supple, no JVD Heart: RRR, no murmur Respiratory: no wheezes, no rales Gastrointestinal: soft, non-tender, normal bowel sounds Extremities: no cyanosis, no edema Neurological: CN's grossly intact, no focal deficits Psychiatric: normal affect, A&O x 3 Hosp A/P (1) Acute CVA (cerebrovascular accident) Code(s): I63.9 - CEREBRAL INFARCTION, UNSPECIFIED Status: Acute (2) CAD (coronary artery disease) Code(s): I25.10 - ATHSCL HEART DISEASE OF [place] CORONARY ARTERY W/O ANG PCTRS Status: Chronic Qualifiers: Coronary Disease-Associated Artery/Lesion type: bypass graft [place] vs. transplanted heart: [place] heart Associated angina: without angina Qualified Code(s): I25.810 - Atherosclerosis of coronary artery bypass graft(s) without angina pectoris (3) Seizure disorder Code(s): G40.909 - EPILEPSY, UNSP, NOT INTRACTABLE, WITHOUT STATUS EPILEPTICUS Status: Chronic (4) History of CVA (cerebrovascular accident) Code(s): Z86.73 - PRSNL HX OF TIA (TIA), AND CEREB INFRC W/O RESID DEFICITS Status: Chronic (5) DM2 (diabetes mellitus, type 2) Status: Chronic Qualifiers: Diabetes mellitus [facility] insulin use: without [facility] use (6) Dyslipidemia Code(s): E78.5 - HYPERLIPIDEMIA, UNSPECIFIED Status: Chronic (7) HTN (hypertension) Code(s): I10 - ESSENTIAL (PRIMARY) HYPERTENSION Status: Chronic Qualifiers: Hypertension type: essential hypertension Qualified Code(s): I10 - Essential (primary) hypertension - Plan is stable on current meds for seizure-keppra and tegretol to mobilize as tolerated with PT awaiting rehab approval, may dc if accepted continue asp, lipitor, prozac, lisinopril, coreg, cozaar and lyrica hemo/neurostable is eating adequate per staff
[2019-05-28] MEDS: Insulin Regular 300 UNITS/3 ML VIAL SC PRN (12:26)
[2019-05-28] MEDS: Atorvastatin Calcium 40 MG TAB PO SCH (20:48)
[2019-05-28] MEDS: Enoxaparin Sodium 30 MG/0.3 ML SYRINGE SC SCH (20:49)
[2019-05-29] MEDS: carBAMazepine 200 MG TAB PO SCH (09:24)
[2019-05-29] MEDS: Carvedilol 6.25 MG TAB PO SCH (09:24)
[2019-05-29] MEDS: Pregabalin 50 MG CAP PO SCH (09:25)
[2019-05-29] MEDS: Lisinopril 10 MG TAB PO SCH (09:25)
[2019-05-29] MEDS: Famotidine 20 MG TAB PO SCH (09:25)
[2019-05-29] MEDS: Senokot S 8.6-50 MG TAB PO SCH (09:26)
[2019-05-29] MEDS: FLUoxetine HCl 20 MG CAP PO SCH (09:26)
[2019-05-29] MEDS: levETIRAcetam 500 mg/5 ml Oral Solution PO SCH (09:26)
[2019-05-29] MEDS: Aspirin 325 MG TAB PO SCH (09:26)
[2019-05-29 11:41] VITALS: BP 138/83; TEMP 98.6
[2019-05-29] MEDS: Clopidogrel Bisulfate 75 MG TAB PO SCH (11:50)
[2019-05-29] MEDS: Insulin Regular 300 UNITS/3 ML VIAL SC PRN (11:51)
--- NOTE | 2019-05-29 13:24 | PDOC.HOSPP ---
- Subjective Encounter Date: 05/29/19 Encounter Time: 08:00 Subjective: awake, follows verbal stimuli, freely moves right extremities at bedside - Objective Vital Signs & Weight: Vital Signs (12 hours) Temp Pulse Resp BP BP BP Pulse Ox 05/29/19 10:55 98.6 F 67 16 138/83 94 L 05/29/19 09:24 176/87 H 05/29/19 08:59 94 L 05/29/19 07:20 98.5 F 70 16 176/87 H 94 L 05/29/19 03:59 98.0 F 71 18 137/87 96 Weight Weight 181 lb 6.4 oz I&O: 05/28/19 05/29/19 05/30/19 06:59 06:59 06:59 Intake Total 750 30 Balance 750 30 Result Diagrams: 05/24/19 04:59 05/25/19 05:18 Additional Labs: Accuchecks 05/29/19 05/29/19 05/28/19 10:59 05:36 20:59 POC Glucose 163 H 103 128 H 05/28/19 16:49 POC Glucose 117 H Hospitalist ROS - Medication Medications: Active Medications Generic Name Dose Route Start Last Admin Trade Name Freq PRN Reason Stop Dose Admin Hydrocodone Bitart/Acetaminophen 1 tab 05/24/19 11:31 05/27/19 08:55 [place] 5/325 PO 1 tab Q6H PRN Administration Moderate Pain (4-6) Aspirin 325 mg 05/27/19 09:00 05/29/19 09:26 Aspirin PO 325 mg DAILY ERUM Administration Atorvastatin Calcium 80 mg 05/23/19 21:00 05/28/19 20:48 Lipitor PO 80 mg HS ERUM Administration Bisacodyl 10 mg 05/25/19 10:10 05/27/19 09:01 Dulcolax [place] 10 mg DAILYPRN PRN Administration Constipation Carbamazepine 200 mg 05/24/19 17:00 05/29/19 09:24 Tegretol PO 200 mg BID-WM ERUM Administration Carvedilol 12.5 mg 05/24/19 08:00 05/29/19 09:24 Coreg PO 12.5 mg BID-WM ERUM Administration Clopidogrel Bisulfate 75 mg 05/24/19 12:00 05/29/19 11:50 Plavix PO 75 mg 1200 ERUM Administration Enoxaparin Sodium 30 mg 05/24/19 21:00 05/28/19 20:49 Lovenox SC 30 mg 2100 ERUM Administration Famotidine 20 mg 05/23/19 21:00 05/29/19 09:25 Pepcid PO 20 mg BID ERUM Administration Fluoxetine HCl 20 mg 05/24/19 09:00 05/29/19 09:26 Prozac PO 20 mg QAM ERUM Administration Hydralazine HCl 10 mg 05/26/19 01:10 05/26/19 01:33 Apresoline SLOW IVP 10 mg Q4H PRN Administration SBP > 180 and HR < 70 Insulin Human Regular 0 units 05/23/19 18:13 05/29/19 11:51 Humulin R SC 2 unit .MILD SLIDING SCALE PRN Administration Mild Correctional Scale Labetalol HCl 10 mg 05/23/19 18:15 05/25/19 21:56 Normodyne SLOW IVP 10 mg Q4H PRN Administration Systolic BP > 180 Levetiracetam 1,000 mg 05/25/19 21:00 05/29/19 09:26 Keppra Oral Solution PO 1,000 mg BID ERUM Administration Lisinopril 30 mg 05/26/19 08:46 05/29/19 09:25 Zestril PO 30 mg DAILY ERUM Administration Lorazepam 1 mg 05/25/19 11:31 05/25/19 12:04 Ativan PO 1 mg DAILYPRN PRN Administration Claustrophobia Pregabalin 50 mg 05/24/19 21:00 05/29/19 09:25 Lyrica PO 50 mg BID ERUM Administration Senna/Docusate Sodium 1 tab 05/26/19 09:00 05/29/19 09:26 Senokot S PO 1 tab QAM ERUM Administration Sodium Chloride 10 ml 05/23/19 18:10 05/26/19 22:28 Flush - Normal Saline IVF 10 ml PRN PRN Administration Saline Flush - Exam General Appearance: NAD, awake alert Eye: PERRL, anicteric sclera ENT: no oropharyngeal lesions, moist mucosa Neck: supple, no JVD Heart: RRR, no gallops Respiratory: no wheezes, no rales Gastrointestinal: soft, non-tender, normal bowel sounds Extremities: no cyanosis, no edema Neurological - other findings: left hemiplegia Psychiatric: normal affect, A&O x 3 Hosp A/P (1) Acute CVA (cerebrovascular accident) Code(s): I63.9 - CEREBRAL INFARCTION, UNSPECIFIED Status: Acute (2) CAD (coronary artery disease) Code(s): I25.10 - ATHSCL HEART DISEASE OF [place] CORONARY ARTERY W/O ANG PCTRS Status: Chronic Qualifiers: Coronary Disease-Associated Artery/Lesion type: bypass graft [place] vs. transplanted heart: [place] heart Associated angina: without angina Qualified Code(s): I25.810 - Atherosclerosis of coronary artery bypass graft(s) without angina pectoris (3) Seizure disorder Code(s): G40.909 - EPILEPSY, UNSP, NOT INTRACTABLE, WITHOUT STATUS EPILEPTICUS Status: Chronic (4) History of CVA (cerebrovascular accident) Code(s): Z86.73 - PRSNL HX OF TIA (TIA), AND CEREB INFRC W/O RESID DEFICITS Status: Chronic (5) DM2 (diabetes mellitus, type 2) Status: Chronic Qualifiers: Diabetes mellitus nursing home insulin use: without nursing home use (6) Dyslipidemia Code(s): E78.5 - HYPERLIPIDEMIA, UNSPECIFIED Status: Chronic (7) HTN (hypertension) Code(s): I10 - ESSENTIAL (PRIMARY) HYPERTENSION Status: Chronic Qualifiers: Hypertension type: essential hypertension Qualified Code(s): I10 - Essential (primary) hypertension - Plan is stable on current meds for seizure-keppra and tegretol to mobilize as tolerated with PT continue asp, lipitor, prozac, lisinopril, coreg, cozaar and lyrica hemo/neurostable DC patient to inpt rehab
--- NOTE | 2019-05-29 13:57 | DIS ---
DATE OF ADMISSION: 05/23/2019 DATE OF DISCHARGE: 05/29/2019 DISCHARGE DISPOSITION: Inpatient rehab. PRIMARY DISCHARGE DIAGNOSES: Acute cerebrovascular accident with worsening of left hemiplegia; history of prior cerebrovascular accident with left hemiplegia; history of prior intracranial bleed; coronary artery disease; breakthrough seizure with seizure disorder; diabetes mellitus, type 2; dyslipidemia; and hypertension. PROCEDURES DONE DURING HOSPITALIZATION: CT brain done, extensive postoperative changes in the right cerebral hemisphere and calvarium. No acute intracranial abnormalities were seen. MRI brain with contrast done showed deep to the old right craniotomy changes, there is a large heterogeneous area of encephalomalacia and gliosis with old infarct in the right middle cerebral artery territory complicated by prior hemorrhagic conversion. There was superimposed acute or subacute infarct in the old infarct site in the right-sided brain parenchyma. Discharge H and H 12 and 36, platelet count 255, and MCV is 88. Discharge white count of 10, BUN of 9, and creatinine 0.6 on May 24. DISCHARGE MEDICATIONS: 1. Lipitor 80 mg p.o. at bedtime. 2. Fluoxetine 20 mg p.o. q.a.m. 3. Keppra 1000 mg twice daily. 4. Tegretol 200 mg twice daily. 5. Lidocaine 5% transdermal patch daily. 6. Xarelto 10 mg daily. 7. Aspirin 81 mg p.o. daily. 8. Coreg 12.5 mg p.o. twice daily. 9. Plavix 75 mg p.o. daily. 10. Cozaar 50 mg p.o. daily. 11. Metformin 500 mg p.o. q.a.m. 12. Lyrica 50 mg twice daily. INPATIENT CONSULT: Dr. Larissa Fischer for Neurology. DISCHARGE PLAN: The patient to follow up with his neurologist in 1 week and primary care physician in 1 week. BRIEF COURSE DURING HOSPITALIZATION: The patient initially got admitted on the with an episode of seizure. He has had prior history of intracranial bleed in January and had undergone craniotomy with evacuation at [facility]. He had residual left hemiplegia from then on. The patient was on Keppra prior to arrival here. He has had neurology consultation during his stay here. Initial CT did not reveal any acute infarct. He has had a MRI without contrast and MRI with contrast done, which showed acute infarct near the prior CVA site. He has left dense hemiplegia. The patient has not ambulated from January of this year. He has been accepted to inpatient rehab for help with transfers and to mobilize. Please note, the patient is on Xarelto, aspirin, and Plavix. At some point, Plavix needs to be discontinued via his Neurology outpatient appointment. He is otherwise hemodynamically stable. He has not had any further seizures after being placed on Tegretol in addition to Keppra. A total of 35 minutes was spent on discharge plan. Please note, the patient is tolerating oral solid diet. Please see a [id number] documentation for the day of discharge on [facility]. Job ID: [id number]
--- NOTE | 2019-05-31 09:40 | EEG ---
Referring Physician: JUANITA EEG # [id number] TEST TYPE: ROUTINE PORTABLE INPATIENT REPORT: AN EEG USING THE INTERNATIONAL TEN-TWENTY SYSTEM OF ELECTRODE PLACEMENT WAS PERFORMED. The waking background is slow bilaterally. The dominant frequency on the right is delta activity and the dominant frequency on the left is theta. Photic stimulation was unremarkable. No epileptiform features were present. Movement and EMG artifact was present. IMPRESSION: THIS IS AN ABNORMAL STUDY FOR THE FINDINGS OF DIFFUSE SLOWING WHICH IS MORE SEVERE ON THE RIGHT THAN THE LEFT. CLINICAL CORRELATION IS INDICATED. Ornamental Plaster Sticker: LILIA Preboarder: [email or web address]
== END 2019-05-29 15:00 | DRG 100 ==
LOC: ERS 12:00 → 2SE 14:02
PROVIDERS: ADMIT Internal Medicine; ATTEND Internal Medicine
DX: G40.802 Other epilepsy, not intractable, without status epilepticus (principal); I63.9 Cerebral infarction, unspecified; G81.94 Hemiplegia, unspecified affecting left nondominant side; E87.2 Acidosis; J96.10 Chronic respiratory failure, unspecified whether with hypoxia or hypercapnia; I25.10 Atherosclerotic heart disease of native coronary artery without angina pectoris; E78.5 Hyperlipidemia, unspecified; I10 Essential (primary) hypertension; R29.810 Facial weakness; F32.9 Major depressive disorder, single episode, unspecified; E87.6 Hypokalemia; E78.00 Pure hypercholesterolemia, unspecified; R41.89 Other symptoms and signs involving cognitive functions and awareness; G93.89 Other specified disorders of brain; E11.40 Type 2 diabetes mellitus with diabetic neuropathy, unspecified; Z87.891 Personal history of nicotine dependence; Z79.4 Long term (current) use of insulin; Z95.1 Presence of aortocoronary bypass graft; Z99.3 Dependence on wheelchair; Z93.0 Tracheostomy status
CPT/HCPCS: 36415; 36416; 51701; 70450; 70551; 70552; 80048; 80053; 80177; 81003; 82550; 83605; 83735; 84100; 85025; 85610; 85730; 94760; 95816; 95819; 96361; 96365; 96375; A9577; J0360; J1650; J1815; J1953; J2060; J2270; J3480; L1930; S0028

== ENCOUNTER 2020-05-20 10:46 | Emergency (ER) | payer BC ==
--- NOTE | 2020-05-20 11:36 | RAD ---
XR Chest 1 View Portable History: Chest pain Comparison: Radiograph 2017 Findings: Chronic blunting left lateral costophrenic sulcus. No confluent airspace consolidation, pne umothorax or effusion. Heart size upper limits of normal. Multiple midline sternotomy wires. No acute osseous abnormality. Impression: No acute intrathoracic abnormality.
[2020-05-20 11:38] LABS: #Eosinphils 0.2 thou/uL (0.0-0.7); #Lymphocytes 1.8 thou/uL (1.20-3.40); #Monocytes 0.5 thou/uL (0.11-0.59); #Neutrophils 9.4 thou/uL (1.40-6.50); %Basophils 0.2 % (0.0-1.0); %Eosinophils 1.5 % (0.0-10.0); %Lymphocytes 14.8 % (21.0-51.0); %Monocytes 4.4 % (0.0-10.0); %Neutrophils 79.2 % (42.0-75.0); Hemoglobin 14.1 g/dL (14.0-18.0); Mean Corpuscular HGB CONC 33.4 g/dL (32.0-36.0); Mean Corpuscular Hemoglobin 30.7 pg (27.0-31.0); Mean Corpuscular Volume 91.9 fL (78.0-98.0); Mean Platelet Volume 6.6 fL (7.4-10.4); Platelet Count 301 thou/uL (130-400); RBC Distribution Width 11.5 % (11.5-14.5); Red Blood Cell (RBC) Count 4.58 mill/uL (4.70-6.10); White Blood Cell (WBC) Count 11.8 thou/uL (4.8-10.8)
[2020-05-20] MEDS ORDERED: levETIRAcetam 500 MG/100 ML PREMIX BAG ONE (11:40)
[2020-05-20 11:52] LABS: ALT (SGPT) 42 U/L (8-55); AST (SGOT) 26 U/L (5-34); Alkaline Phosphatase 147 U/L (40-110); Anion Gap 16 mmol/L (10-20); BUN (Urea Nitrogen) 20 mg/dL (8.4-25.7); Bilirubin, Total 0.2 mg/dL (0.2-1.2); Calc. Creatinine Clearance 0 mL/min (70-130); Calcium 8.6 mg/dL (7.8-10.44); Carbon Dioxide 21 mmol/L (23-31); Chloride 106 mmol/L (98-107); Estimated GFR-MDRD Greater than 90; Globulin 2.9 g/dL (2.4-3.5); Glucose 246 mg/dL (80-115); Protein, Total 6.9 g/dL (5.8-8.1); Sodium 139 mmol/L (136-145)
--- NOTE | 2020-05-20 12:08 | CT ---
CT Brain WO Con: 05/20/2020 11:03 AM CLINICAL HISTORY: History of seizures. IMAGING TECHNIQUE: Multiple CT images were obtained of the brain without IV contrast. COMPARISON: May 15, 2019 CT the brain FINDINGS: BRAIN: Evidence of acute infarct: None. Evidence of chronic ischemic change:The area encephalomalacia involving the right frontal lobe, right temporal lobe and right periventricular white matter is stable. Evidence of intracranial hemorrhage: None. Evidence of midline shift: Third ventricle and septum pellucidum are midline. Ventricles: Normal. No hydrocephalus. SKULL: There is stable craniectomy changes of the right frontal, parietal and temporal skull. VISUALIZED PARANASAL SINUSES: Clear. MASTOID AIR CELLS: Clear. EXTRACRANIAL SOFT TISSUES: Normal. IMPRESSION: No acute intracranial abnormality. Stable postoperative change of the right skull and right cerebra l hemisphere.
== END 2020-05-20 13:49 | disposition home or self-care (01) ==
LOC: ERS 10:46
DX: G40.909 Epilepsy, unspecified, not intractable, without status epilepticus (principal); E11.9 Type 2 diabetes mellitus without complications; E78.5 Hyperlipidemia, unspecified; E78.00 Pure hypercholesterolemia, unspecified; E78.2 Mixed hyperlipidemia; Z86.73 Personal history of transient ischemic attack (TIA), and cerebral infarction without residual deficits; Z87.891 Personal history of nicotine dependence; Z79.899 Other long term (current) drug therapy; Z79.84 Long term (current) use of oral hypoglycemic drugs
CPT/HCPCS: 36415; 70450; 71045; 80053; 85025; 93005; 96374; J1953

== ENCOUNTER 2020-07-14 14:25 | Observation (INO) | payer BC, OTHER ==
--- NOTE | 2020-07-14 15:28 | RAD ---
EXAM: CHEST ONE VIEW HISTORY: Back pain and indigestion. COMPARISON: 05/20/2020 FINDINGS: Postoperative changes related to CABG are again noted. Cardiac silhouette and pulmonary vasculature a re within normal limits. No consolidation or pleural fluid is identified. The patient's jaw overlies the left lung apex which does limit evaluation. No interval change from prior exam. IMPRESSION: No acute cardiopulmonary process.
[2020-07-14 16:47] LABS: #Eosinphils 0.1 thou/uL (0.0-0.7); #Monocytes 0.7 thou/uL (0.11-0.59); #Neutrophils 12.6 thou/uL (1.40-6.50); %Basophils 0.3 % (0.0-1.0); %Eosinophils 0.5 % (0.0-10.0); %Lymphocytes 12.9 % (21.0-51.0); %Monocytes 4.6 % (0.0-10.0); %Neutrophils 81.7 % (42.0-75.0); Hemoglobin 14.3 g/dL (14.0-18.0); Mean Corpuscular HGB CONC 34.9 g/dL (32.0-36.0); Mean Corpuscular Volume 88.8 fL (78.0-98.0); Mean Platelet Volume 6.4 fL (7.4-10.4); Platelet Count 314 thou/uL (130-400); RBC Distribution Width 11.6 % (11.5-14.5); Red Blood Cell (RBC) Count 4.62 mill/uL (4.70-6.10); White Blood Cell (WBC) Count 15.4 thou/uL (4.8-10.8)
[2020-07-14 17:17] LABS: ALT (SGPT) 25 U/L (8-55); AST (SGOT) 14 U/L (5-34); Albumin 4.6 g/dL (3.4-4.8); Alkaline Phosphatase 148 U/L (40-110); Anion Gap 17 mmol/L (10-20); BUN (Urea Nitrogen) 19 mg/dL (8.4-25.7); Bilirubin, Total 0.4 mg/dL (0.2-1.2); CK (CPK) 63 U/L (30-200); Calc. Creatinine Clearance 0 mL/min (70-130); Calcium 9.8 mg/dL (7.8-10.44); Carbon Dioxide 24 mmol/L (23-31); Chloride 102 mmol/L (98-107); Estimated GFR-MDRD Greater than 90; Globulin 2.9 g/dL (2.4-3.5); Glucose 177 mg/dL (80-115); Lipase 23 U/L (8-78); Potassium 4.5 mmol/L (3.5-5.1); Protein, Total 7.5 g/dL (5.8-8.1); Sodium 138 mmol/L (136-145)
[2020-07-14 18:01] LABS: Bacteria/HPF None Seen HPF (None Seen); Bilirubin Negative (Negative); Blood, Urine Negative (Negative); Calcium Oxalate Crystals 1+ HPF (None Seen); Clarity Extra Turbid (Clear); Glucose, Urine (Dipstick) 50 mg/dL (Negative); Ketone, Urine Negative (Negative); Leukocyte Negative Leu/uL (Negative); Mucous/LPF 1+ LPF (<2+); Nitrite Negative (Negative); Protein, Urine (Dipstick) 30 mg/dL (Neg-Trace); Specific Gravity, Urine 1.037 (1.002-1.036); Squamous Epithelial 0-3 HPF (0-3); Urobilinogen Normal mg/dL (Less than 2); WBC/HPF 0-3 HPF (0-3)
[2020-07-14 18:10] LABS: RBC/HPF 0-3 HPF (0-3)
[2020-07-14] MEDS ORDERED: Ondansetron PF 4 MG/2 ML Vial ONE ×2 (18:10)
[2020-07-14] MEDS ORDERED: Pantoprazole 40 MG VIAL ONE (18:10)
[2020-07-14] MEDS ORDERED: Morphine 4 MG/ML VIAL ONE (18:10)
--- NOTE | 2020-07-14 18:19 | ULT ---
RIGHT UPPER QUADRANT ABDOMINAL ULTRASOUND: History: Epigastric abdominal discomfort Technique: Multiplanar grayscale and color doppler images were obtained in a right upper quadrant abd ominal ultrasound. FINDINGS: This is exam is limited secondary to patient's body habitus and bowel gas. The visualized portions of the liver are unremarkable without focal lesions or intrahepatic ductal di latation. The gallbladder is normal without stones, sludge, gallbladder wall thickening or pericholec ystic fluid. The common bile duct is normal measuring 5 mm. Limited visualization of the pancreas is unremarkable. The right kidney is normal in echogenicity wit hout hydronephrosis or calculus and measures 11.0 cm in length. IMPRESSION: Unremarkable exam. POS: EAA
[2020-07-14] MEDS ORDERED: Aspirin Chewable 81 MG TAB ONE (19:31)
[2020-07-14 20:35] LABS: Troponin I Less than 0.010 ng/mL (< 0.028)
[2020-07-14] MEDS ORDERED: Acetaminophen 325 MG TAB PO PRN (20:59)
[2020-07-14] MEDS ORDERED: Acetaminophen 650 MG Suppository PR PRN (20:59)
[2020-07-14] MEDS ORDERED: Dextrose 5% in Water 1,000 ML IV PRN (21:15)
[2020-07-14] MEDS ORDERED: HumaLOG 300 UNITS/3 ML VIAL SC PRN ×2 (21:15)
[2020-07-14] MEDS ORDERED: Dextrose 50% Abboject 50 ML SYRINGE SLOW IVP PRN (21:15)
[2020-07-14] MEDS ORDERED: Famotidine 20 MG TAB ONE (22:52)
[2020-07-14 22:57] LABS: Troponin I Less than 0.010 ng/mL (< 0.028)
[2020-07-14] MEDS: Famotidine 20 MG TAB PO SCH (22:58)
--- NOTE | 2020-07-15 00:44 | PDOC.HHP ---
Hospitalist HPI - History of Present Illness Indigestion x 3 days History of Present Illness: Patient presents to the ED today with complaints of indigestion x 3 days which was worse last night and lasted until the morning. He states he felt nauseated in the morning with excessive salivation which he brought up. Denies any other episodes of vomiting and denies any abdominal discomfort. Denies experiencing any chest pain or shortness of breath. Has not noted any cough or hemoptysis. No fevers, chills or sweats. States that he has felt well in himself otherwise except for occasional lightheadedness which he has been experiencing for several weeks. He was initially seen at an urgent care clinic and then referred here. He has a history of CAD s/p CABG and has had a CVA in the past with residual left sided weakness. He is bed bound due to this and states he is undergoing rehab. Denies any progressive weakness/numbness. No slurred speech or vision changes. ED COURSE: In the ED he had an EKG showing NSR, with HR of 67, incomplete RBBB. Labs notable for WCC 15.4, Hgb 14.3, HCT 41.0, Platelets 314, Neutrophils 81.7%. BUN 19, Creat 0.79, GFR >90. Glucose 177. LFTs and lipase normal. CK 63. CXR was unremarkable. RUQ US was done as well and also unremarkable. UA showed extra turbid appearance. 30 of protein and 1+ calcium oxalate crystals, otherwise unremarkable. No nitrites, WBC, RBC or bacteria. He was treated with Aspirin, Protonix, Morphine 4 mg IV and Zofran 4 mg IV. He received 500 mLs of NS IV. Patient being referred for vague symptoms/ACS rule out per ED physician. PAST MEDICAL HISTORY: 1. CAD 2. 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 Hypertension 4. Diabetes mellitus 5. Seizure disorder 6. Dyslipidemia PAST SURGICAL HISTORY: 1. CABG x 5. 2. Status post craniotomy following hemorrhagic CVA. 3. Right hand surgery after spider bite. 4. Eyelid surgery for drooping (due to the CVA). SOCIAL HISTORY: He lives with his . Denies any tobacco use, alcohol consumption or drug use. He is bed ridden and currently undergoing rehab. FAMILY HISTORY: Noncontributory. Father from CHF in his 70s. His mother has arhtritis. Reports diabetes and ESRD in his brother. ALLERGIES: NO KNOWN DRUG ALLERGIES CURRENT MEDICATIONS: Lipitor 80 mg p.o. at bedtime. Prozac 20 mg p.o. daily. Keppra 1000 mg daily. Tegretol 200 mg twice daily. Losartan 50 mg p.o. daily. Coreg 12.5 mg p.o. twice daily. Plavix 75 mg p.o. daily. Metformin 500 mg p.o. q.a.m. Amlodipine 5 mg PO p.o. daily. Hospitalist ROS - Medication Medications: Active Medications Generic Name Dose Route Start Last Admin Trade Name Freq PRN Reason Stop Dose Admin Famotidine 20 mg 07/14/20 21:00 07/14/20 22:58 Famotidine 20 Mg Tab PO 20 mg BID ERUM Administration - Exam General Appearance: NAD, awake alert General - other findings: 145/87, MAP: 106, Resp: 20 (Non-Labored), Pain: 1, O2 sat: 97 RA Eye: PERRL, anicteric sclera ENT: normocephalic atraumatic, no oropharyngeal lesions Neck: supple, no lymphadenopathy Heart: RRR, no murmur, no gallops, normal peripheral pulses Respiratory: CTAB, no wheezes, no rales, no ronchi, normal chest expansion, no tachypnea Gastrointestinal: soft, non-tender, non-distended, normal bowel sounds, no guarding, no rigidity Extremities: no cyanosis, no edema Skin: no rashes Neurological: hemiplegia (left sided) Musculoskeletal - other findings: left sided weakness Psychiatric: normal affect, normal behavior, A&O x 3 Hospitalist Results - Labs Result Diagrams: 07/14/20 16:33 07/14/20 16:33 Lab results: WBC 15.4 thou/uL (4.8-10.8) H 07/14/20 16:33 Hgb 14.3 g/dL (14.0-18.0) 07/14/20 16:33 Hct 41.0 % (42.0-52.0) L 07/14/20 16:33 MCV 88.8 fL (78.0-98.0) 07/14/20 16:33 Plt Count 314 thou/uL (130-400) 07/14/20 16:33 Neutrophils % 81.7 % (42.0-75.0) H 07/14/20 16:33 Sodium 138 mmol/L (136-145) 07/14/20 16:33 Potassium 4.5 mmol/L (3.5-5.1) 07/14/20 16:33 Chloride 102 mmol/L (98-107) 07/14/20 16:33 Carbon Dioxide 24 mmol/L (23-31) 07/14/20 16:33 BUN 19 mg/dL (8.4-25.7) 07/14/20 16:33 Creatinine 0.79 mg/dL (0.7-1.3) 07/14/20 16:33 Glucose 177 mg/dL (80-115) H 07/14/20 16:33 Calcium 9.8 mg/dL (7.8-10.44) 07/14/20 16:33 Total Bilirubin 0.4 mg/dL (0.2-1.2) 07/14/20 16:33 AST 14 U/L (5-34) 07/14/20 16:33 ALT 25 U/L (8-55) 07/14/20 16:33 Alkaline Phosphatase 148 U/L (40-110) H 07/14/20 16:33 Creatine Kinase 63 U/L (30-200) 07/14/20 16:33 Troponin I Less than 0.010 ng/mL (< 0.028) 07/14/20 22:08 Serum Total Protein 7.5 g/dL (5.8-8.1) 07/14/20 16:33 Albumin 4.6 g/dL (3.4-4.8) 07/14/20 16:33 Lipase 23 U/L (8-78) 07/14/20 16:33 Urine Ketones Negative mg/dL (Negative) 07/14/20 17:25 Urine Blood Negative (Negative) 07/14/20 17:25 Urine Nitrite Negative (Negative) 07/14/20 17:25 Ur Leukocyte Esterase Negative Vijay/uL (Negative) 07/14/20 17:25 Urine RBC 0-3 HPF (0-3) 07/14/20 17:25 Urine WBC 0-3 HPF (0-3) 07/14/20 17:25 Ur Squamous Epith Cells 0-3 HPF (0-3) 07/14/20 17:25 Urine Bacteria None Seen HPF (None Seen) 07/14/20 17:25 - Radiology Interpretation Chest x-ray Status: report reviewed by me Hospitalist H&P A/P - Problem (1) Indigestion Code(s): K30 - FUNCTIONAL DYSPEPSIA Status: Acute (2) Lightheadedness Code(s): R42 - DIZZINESS AND GIDDINESS Status: Chronic (3) History of hemorrhagic cerebrovascular accident (CVA) with residual deficit Code(s): I69.30 - UNSPECIFIED SEQUELAE OF CEREBRAL INFARCTION Status: Chronic (4) S/P CABG x 5 Code(s): Z95.1 - PRESENCE OF AORTOCORONARY BYPASS GRAFT Status: Chronic (5) CAD (coronary artery disease) Code(s): I25.10 - ATHSCL HEART DISEASE OF [place] CORONARY ARTERY W/O ANG PCTRS Status: Chronic Qualifiers: Coronary Disease-Associated Artery/Lesion type: bypass graft [place] vs. transplanted heart: [place] heart Associated angina: without angina Qualified Code(s): I25.810 - Atherosclerosis of coronary artery bypass graft(s) without angina pectoris (6) DM2 (diabetes mellitus, type 2) Status: Chronic Qualifiers: Diabetes mellitus terminal clerk insulin use: without nursing home use (7) HTN (hypertension) Code(s): I10 - ESSENTIAL (PRIMARY) HYPERTENSION Status: Chronic Qualifiers: Hypertension type: essential hypertension Qualified Code(s): I10 - Essential (primary) hypertension (8) Seizure disorder Code(s): G40.909 - EPILEPSY, UNSP, NOT INTRACTABLE, WITHOUT STATUS EPILEPTICUS Status: Chronic (9) Dyslipidemia Code(s): E78.5 - HYPERLIPIDEMIA, UNSPECIFIED Status: Chronic - Plan Plan: Continue Cardiac monitoring. Monitor BP. Monitor glucose. Initiate sliding scale. Carotid US. Echo. Resume home medications once verified.
[2020-07-15 03:15] VITALS: BMI 28.9
[2020-07-15 04:48] LABS: #Eosinphils 0.2 thou/uL (0.0-0.7); #Lymphocytes 2.9 thou/uL (1.20-3.40); #Monocytes 0.7 thou/uL (0.11-0.59); #Neutrophils 5.6 thou/uL (1.40-6.50); %Basophils 0.4 % (0.0-1.0); %Eosinophils 2.4 % (0.0-10.0); %Lymphocytes 30.5 % (21.0-51.0); %Monocytes 7.1 % (0.0-10.0); %Neutrophils 59.6 % (42.0-75.0); Hemoglobin 12.8 g/dL (14.0-18.0); Mean Corpuscular HGB CONC 33.5 g/dL (32.0-36.0); Mean Corpuscular Hemoglobin 29.9 pg (27.0-31.0); Mean Corpuscular Volume 89.2 fL (78.0-98.0); Mean Platelet Volume 6.7 fL (7.4-10.4); Platelet Count 275 thou/uL (130-400); RBC Distribution Width 11.7 % (11.5-14.5); Red Blood Cell (RBC) Count 4.29 mill/uL (4.70-6.10); White Blood Cell (WBC) Count 9.4 thou/uL (4.8-10.8)
[2020-07-15 05:08] LABS: Anion Gap 14 mmol/L (10-20); BUN (Urea Nitrogen) 21 mg/dL (8.4-25.7); Calc. Creatinine Clearance 128 mL/min (70-130); Calcium 9.6 mg/dL (7.8-10.44); Carbon Dioxide 25 mmol/L (23-31); Chloride 103 mmol/L (98-107); Estimated GFR-MDRD Greater than 90; Glucose 112 mg/dL (80-115); Sodium 138 mmol/L (136-145)
[2020-07-15] MEDS: carBAMazepine 200 MG TAB PO SCH ×2 (07:50→17:53)
[2020-07-15] MEDS: Carvedilol 6.25 MG TAB PO SCH ×2 (07:51→17:53)
[2020-07-15] MEDS: Famotidine 20 MG TAB PO SCH (08:18)
[2020-07-15] MEDS ORDERED: Losartan 25 MG TAB PO SCH (09:00)
[2020-07-15] MEDS ORDERED: Amlodipine 5 MG TAB PO SCH (09:00)
[2020-07-15] MEDS ORDERED: levETIRAcetam 500 mg/5 ml Oral Solution PO SCH (09:00)
--- NOTE | 2020-07-15 09:01 | ULT ---
BILATERAL CAROTID DUPLEX ULTRASOUND: Date; 07/15/2020 HISTORY: Syncope. FINDINGS: Real-time color Doppler evaluation of the right and left carotid systems shows some mild intimal thic kening bilaterally. Some calcified plaque formation is seen at the right carotid bifurcation and near the left carotid bifurcation. On the right side, peak systolic velocities of the common carotid were 73 cm/second. Internal carotid velocities were 40 cm/second and external carotid velocities were 57 cm/second. On the left side, peak systolic velocities of the common carotid were 67 cm/second. Internal carotid velocities were 38 cm/second and external carotid velocities were 58 cm/second. Vertebral flow was antegrade bilaterally. IMPRESSION: No evidence of hemodynamically significant stenosis of either internal carotid artery. POS: DWIGHT
[2020-07-15 11:41] LABS: SARS-CoV-2 MS2 Positive; SARS-CoV-2 N Gene Negative; SARS-CoV-2 S Gene Negative; SARS-CoV-2 by NAA Not Detected (NotDetected); SARS-CoV-2 orf1ab Negative
[2020-07-15] MEDS ORDERED: Clopidogrel Bisulfate 75 MG TAB PO SCH (12:00)
[2020-07-15 15:33] VITALS: TEMP 98.5
[2020-07-15 17:54] VITALS: BP 134/79
[2020-07-15] MEDS ORDERED: Atorvastatin Calcium 40 MG TAB PO SCH (21:00)
--- NOTE | 2020-07-16 01:44 | DIS ---
DATE OF ADMISSION: 07/14/2020 DATE OF DISCHARGE: 07/15/2020 DISCHARGE DIAGNOSES: 1. Gastroesophageal reflux disease. 2. Cystitis, suspected streptococcal species. 3. Coronary artery disease, chronic and stable. 4. Seizure disorder. 5. Hypertension, chronic and stable. 6. Diabetes mellitus type 2, stable. CONSULTATIONS: None. PERTINENT LABORATORY AND X-RAY FINDINGS: Basic metabolic profile within normal limits. Troponin I negative x3. Lipase 23. CBC showed a white blood cell count ranging between 9.4 to 15.4, hemoglobin ranged between 12.8 to 14.3. COVID-19 PCR not detected on 07/14/2020. Urine culture dated 07/14/2020 showed non hemolytic streptococcal species 25-50,000 colonies. Portable chest x-ray dated 07/14/2020 showed no acute cardiopulmonary process. Abdominal ultrasound dated 07/14/2020, showed negative findings. Carotid Doppler study dated 07/15/2020, showed no hemodynamically significant stenosis. HOSPITAL COURSE: The patient was observed on the telemetry unit after initially presenting with gastroesophageal reflux, worsening in the last 72 hours. The patient with significant history of coronary artery disease, status post coronary artery bypass grafting and previous CVA with residual left-sided weakness. The patient underwent extensive evaluation including metabolic screening showing evidence of potential cystitis with streptococcal species isolated on preliminary urine culture. The patient also with classic symptoms of gastroesophageal reflux, treated with Protonix with overall improvement. Current recommendations are to continue Protonix 40 mg daily and monitor symptoms. I have examined the patient at the time of discharge and discussed followup instructions. The patient verbalizes understanding and agreement, ready for discharge on 07/15/2020. DISCHARGE MEDICATIONS: 1. Keppra 1000 mg p.o. b.i.d. 2. Lidocaine patch 1-2 patches transdermally daily p.r.n. 3. Lipitor 80 mg p.o. q.h.s. 4. Fluoxetine 20 mg p.o. daily. 5. Carvedilol 12.5 mg p.o. b.i.d. 6. Losartan 50 mg p.o. daily. 7. Metformin 500 mg p.o. daily. 8. Keflex 500 mg p.o. b.i.d. x5 days. 9. Lyrica 500 mg p.o. b.i.d. 10. Plavix 75 mg p.o. daily. 11. Protonix 40 mg p.o. daily. 12. Tegretol 200 mg p.o. b.i.d. FOLLOWUP: The patient is to followup with Dhara Tsang NP within 7 days of discharge. CONDITION ON DISCHARGE: Stable. ACTIVITY: Ad-prem. DIET: ADA and heart healthy. CODE STATUS: Full. DISPOSITION: To home on 07/15/2020. Job ID: [id number]
== END 2020-07-15 18:30 | disposition home or self-care (01) ==
LOC: ERS 14:25 → ERHOLD 18:55 → 2NO 07-15 03:10
PROVIDERS: ADMIT Family Medicine; ATTEND Family Medicine
DX: K21.9 Gastro-esophageal reflux disease without esophagitis (principal); N30.90 Cystitis, unspecified without hematuria; I25.10 Atherosclerotic heart disease of native coronary artery without angina pectoris; G40.909 Epilepsy, unspecified, not intractable, without status epilepticus; I10 Essential (primary) hypertension; E11.9 Type 2 diabetes mellitus without complications; R42 Dizziness and giddiness; I69.354 Hemiplegia and hemiparesis following cerebral infarction affecting left non-dominant side; E78.5 Hyperlipidemia, unspecified; E78.00 Pure hypercholesterolemia, unspecified; Z87.891 Personal history of nicotine dependence; Z79.84 Long term (current) use of oral hypoglycemic drugs; Z79.899 Other long term (current) drug therapy; Z95.1 Presence of aortocoronary bypass graft; Z20.828 Contact with and (suspected) exposure to other viral communicable diseases
CPT/HCPCS: 36415; 36416; 71045; 76705; 80048; 80053; 81003; 81015; 82550; 83690; 84484; 85025; 87086; 87635; 93005; 93306; 93880; 96374; 96375; C9113; G0378; J2270; J2405; U0003